=== PATIENT | female | born 1940 | race Caucasian/White ===

== ENCOUNTER 2017-06-08 09:26 | Inpatient (IN) | payer OTHER ==
[~2017-06-08] VITALS: Ht 154.9 cm; Wt 61.2 kg
[~2017-06-08 09:26] MED LIST: AMANTADINE100 M2 PO; AMOXIL 875 MG875 MG PO; AMOXIL500 MG PO; BUDESONIDE0.25 MG/1 INH/SOL; BUDESONIDE0.25 MG/2 INH/SOL; CARBIDOPA-LEVO1 EA12 PO; CEFTIN250 MG PO; COUMADIN 5 MG TA5 MG PO; COUMADIN2.5 M1 PO; DUONEB 3 MG/3 ML3 ML INH/SOL; FLOVENT HFA10.6 GM INH; FLUOXETINE HCL20 M2 PO; HYDROCODON-ACE1 EAC3 PO; IPRAT-ALBUT 0.5-3 ML NEB; IPRATROPIUM/ SOL ALB; LOPRESSOR 12.12.5 MG PO; NEUPRO1 EAC2 TOP; PENICILLIN V P500 M1 PO; PREDNISONE 10MG10 M1 PO; PREDNISONE 20MG20 MG PO; PREDNISONE10 M2 PO; PREDNISONE10 MG PO; PREDNISONE5 MG PO; TESSALON PERLE100 MG PO; VICODIN 5-3001 EACH PO; WARFARIN SODIU2.5 MG PO
--- NOTE | 2017-06-08 09:27 | NUR ---
O2 AT CASE MANAGEMENT ASSOCIATE 95
--- NOTE | 2017-06-08 09:36 | NUR ---
77 YEAR OLD FEMALE HISTORY OF PARKINSONS/COPD STTAES THAT FOR WEEKS SHE HAS BEEN FEELING A LITTLE SOB, GRADUALLY UNABLE TO LAY IN BED TO SLEEP, LAST PM AND THIS AM STATES THAT SHE FEELS REAL SOB AND THAT SHE HAS A PAIN UNDER HER L BREAST. O2 SAT 92 % ON RA. COMPLAINS OF COUGH PRODUCTIVE OF YELLOW SPUTUM
--- NOTE | 2017-06-08 09:45 | NUR ---
PT CHANGED INTO GOWN, PLACED ON RANGE SCIENTIST, IV INITIATED, LABS DRAWN AND SENT. PCXR AT BEDSIDE. RT CALLED FOR NEB TX
--- NOTE | 2017-06-08 09:50 | ED DYSPNEA/ASTHMA COMPLAINT ---
History of Present Illness General Chief Complaint: Dyspnea (COPD, CHF, Other) Stated Complaint: ASTHMA Source: patient, family, old records Exam Limitations: no limitations Vital Signs & Intake/Output Vital Signs & Intake/Output Vital Signs Date Time Temp Pulse Resp B/P B/P Pulse O2 O2 Flow FiO2 Mean Ox Delivery Rate 06/08 1238 98.9 82 20 135/72 94 Room Air 06/08 1125 98.7 91 20 162/82 95 Room Air 06/08 1027 94 06/08 0931 98.1 92 20 158/80 92 Room Air Allergies Coded Allergies: NO KNOWN ALLERGIES (05/18/16) Reconcile Medications Amantadine HCl (Amantadine) 100 MG TABLET 1 TAB PO BID PARKINSONS (Reported) Budesonide 0.25 MG/2 ML AMPUL.NEB 1 Vial INH/EVGENY BID SHORTNESS OF BREATH ( Reported) Carbidopa/Levodopa (Carbidopa-Levo 25-100 MG Odt) 25 MG-100 MG TAB.RAPDIS 1.5 TAB PO TID PARKINSONS (Reported) Fluoxetine HCl 20 MG CAPSULE 1 CAP PO DAILY DEPRESSION (Reported) Hydrocodone/Acetaminophen (Hydrocodon-Acetaminoph 7.5-325) 1 EACH TABLET 1 TAB PO Q4 HRS NEEDED PAIN CONTROL (Reported) Ipratropium/Albuterol Sulfate (Iprat-Albut 0.5-3(2.5) MG/3 Ml) 3 ML AMPUL.NEB 1 INH NEB Q6-PRN PRN SHORTNESS OF BREATH (Reported) Rotigotine (Neupro) 6 MG/24 HOUR PATCH.TD24 1 PAT TOP DAILY PARKINSONS ( Reported) Warfarin Sodium (Coumadin) 2.5 MG TABLET 1 TAB PO SEE ADMIN CRITERIA BLOOD THINNER (Reported) SUNDAY/FRIDAYS TAKES 5 MG SUNDAY/SUNDAY/SUNDAY/SUNDAY/SUNDAY TAKES 2.5 MG Triage Note: 77 YEAR OLD FEMALE HISTORY OF PARKINSONS/COPD STTAES THAT FOR WEEKS SHE HAS BEEN FEELING A LITTLE SOB, GRADUALLY UNABLE TO LAY IN BED TO SLEEP, LAST PM AND THIS AM STATES THAT SHE FEELS REAL SOB AND THAT SHE HAS A PAIN UNDER HER L BREAST. O2 SAT 92 % ON RA. COMPLAINS OF COUGH PRODUCTIVE OF YELLOW SPUTUM Triage Nurses Notes Reviewed? yes Onset: Gradual Duration: week(s): (1), constant Timing: recent history Severity: mild, moderate Activities at Onset: activity Prior Episodes/Possible Cause: occasional episodes Associated Symptoms: cough HPI: 77-year-old female history of COPD, pe, Parkinson's not O2 dependent presents the ER for evaluation complaining of progressively worsening shortness of breath over the past 1 week. Patient states symptoms are worse with exertion and laying flat. She also states that her legs up and swollen. She denies any chest pain fever chills dizziness lightheadedness. The patient does report to a yellow productive cough. She is not currently on prednisone. She's been using her nebulizer treatments with only mild improvement. No modifying factors or associated symptoms otherwise. (OPAL ELIZABETH) Past History Travel History Traveled to [place] past 21 day No Medical History Any Pertinent Medical History? see below for history Neurological: Parkinson's disease EENT: NONE Cardiovascular: NONE Respiratory: asthma, COPD, pulmonary embolism Gastrointestinal: GERD Hepatic: NONE Renal: NONE Musculoskeletal: NONE Psychiatric: anxiety Endocrine: NONE Blood Disorders: NONE Cancer(s): NONE SUBWAREHOUSE SUPERVISOR/Reproductive: NONE History of MRSA: No History of VRE: No History of CDIFF: No Surgical History Surgical History: non-contributory Psychosocial History Who do you live with Spouse Services at Home None What is your primary language Wolof Tobacco Use: Never used ETOH Use: denies use Illicit Drug Use: denies illicit drug use Family History Hx Contributory? No (OPAL ELIZABETH) Review of Systems Review of Systems Constitutional: Reports: see HPI. All Other Systems: Reviewed and Negative Comments Review of systems: See HPI, All other systems negative. Constitutional, no chills no fever, no malaise no weight loss HEENT: No visual changes no sore throat no congestion, no ear pain Cardiovascular: No chest pain , no palpitation , no orthopnea Skin: no rashes, no change in skin Respiratory: No dyspnea no cough no sputum no hemoptysis GI: No nausea no vomiting, no diarrhea, no bloating/constipation : No dysuria No hematuria, no frequency, no discharge Muscle skeletal: No joint pain, no joint swelling, no back pain, no neck pain, Neurologic: No numbness no confusion, no headache Psych: No stress no depression,. Heme/endocrine: No bruising no bleeding Immunology: No lymphadenopathy (OPAL ELIZABETH) Physical Exam Physical Exam General Appearance: well developed/nourished Respiratory: chest non-tender, wheezing Comments: Well-developed well-nourished person in no acute distress HEENT: Normal EENT exam; PERRL, EOMI,. HEAD is atraumatic. moist mucous membranes. Neck: Supple, no lymphadenopathy, normal range of motion Back: Nontender, Full range of motion Cardiovascular: Regular rate and rhythms no murmurs rubs Respiratory: Chest nontender.There were no bony deformities, no asymmetry. No respiratory distress. Patient speaking in full complete sentences. Wheezing bilaterally no rhonchi no rales Abdomen: Soft, nontender nondistended, no appreciable organomegaly. Normal bowel sounds. No rebound/guarding, Extremity: No edema, full range of motion of extremities, Neuro: Alert oriented x3, motor sensory normal, cranial nerves II through XII grossly intact. There were no obvious focal neurologic abnormalities. Skin: No appreciable rash on exposed skin, skin is warm and dry. Psych: Mood and affect is normal, memory and judgment is normal. Core Measures ACS in differential dx? Yes Severe Sepsis Present: No Septic Shock Present: No (STANLEY RODRÍGUEZ,OPAL) Progress Differential Diagnosis: asthma, AMI, CHF, COPD, musculoskeletal pain, pulmonary embolism, pneumonia, pneumothorax, unstable angina Plan of Care: Orders Procedure Date/time Status PROTHROMBIN TIME 06/09 0600 Active CBC WITHOUT DIFFERENTIAL 06/09 0600 Active BASIC ELECTROLYTES PLUS BUN&CR 06/09 0600 Active Heart Healthy Diet 06/08 D Active LACTIC ACID 06/08 1335 Active Code Status 06/08 1258 Active URINALYSIS 06/08 1231 Complete Pathway - chart 06/08 1212 Active STREP PNEUMO URINARY ANTIGEN 06/08 1212 Complete LEGIONELLA URINARY ANTIGEN 06/08 1212 Complete LOWER RESPIRATORY CULTURE 06/08 1212 Active ED Holding Orders 06/08 1141 Active Admit to inpatient 06/08 1141 Active Vital Signs 06/08 1141 Active Code Status 06/08 1141 Complete Patient Data 06/08 1134 Active BLOOD CULTURE 06/08 1107 Active Intake & Output 06/08 1058 Active PROTHROMBIN TIME 06/08 1000 Complete Add-on Test (ER Only) 06/08 0955 Active Telemetry/Shop Coordinator 06/08 0948 Active TROPONIN LEVEL 06/08 0948 Complete MAGNESIUM 06/08 0948 Complete COMPREHENSIVE METABOLIC PANEL 06/08 0948 Complete CBC WITHOUT DIFFERENTIAL 06/08 0948 Complete B-TYPE NATRIURETIC PEP (BNP) 06/08 0948 Complete EKG 06/08 0936 Active TRC EVALUATION (GEN) 06/08 UNK Active OXYGEN SETUP (GEN) 06/08 UNK Active House Staff 06/08 UNK Active Lab Add-on Test 06/08 UNK Active VTE Mechanical Prophylaxis 06/08 UNK Active Vital Signs 06/08 UNK Active Current Medications Sig/Mark Start time Last Medication Dose Stop Time Status Admin Azithromycin 500 MG DAILY 06/09 1000 AC (Zithromax) Sodium Chloride 250 ML (Normal Saline 0.9%) Ceftriaxone Sodium 1,000 MG DAILY 06/09 1000 CAN (Rocephin) Fluoxetine HCl 20 MG DAILY 06/09 1000 AC (Prozac) Amantadine HCl 100 MG BID 06/08 2200 AC (Symmetrel) Budesonide/ 2 PUF BID 06/08 2200 AC Formoterol Fumarate (Symbicort) Carbidopa/Levodopa 1.5 TAB TID 06/08 1600 AC (Sinemet 25/100MG) Methylprednisolone 40 MG Q8 06/08 1400 AC (Solumedrol) Sodium Chloride 1,000 ML Q13H 06/08 1315 AC (Normal Saline 0.9%) 06/09 0214 Non-Formulary 0 SEE ADMIN CRITERIA 06/08 1300 UNVr Medication (NON FORMULARY) Laboratory Tests 06/08/17 1150: Urinalysis LIGHT H, Urine Color YEL, Urine Clarity CLEAR, Urine pH 6.5, Ur Specific Howard 1.010, Urine Protein NEG, Urine Ketones NEG, Urine Nitrite NEG, Urine Bilirubin NEG, Urine Urobilinogen 0.2, Ur Leukocyte Esterase NEG, Ur Microscopic SEDIMENT EXAMINED, Urine RBC 1-3, Urine WBC RARE, Ur Epithelial Cells FEW, Urine Bacteria FEW H, Urine Mucus FEW, Urine Hemoglobin SMALL H, Urine Glucose NEG 06/08/17 1000: Anion Gap 11, Estimated GFR > 60, BUN/Creatinine Ratio 38.3 H, Glucose 136 H, Calcium 9.2, Magnesium 1.8, Total Bilirubin 0.9, AST 16, ALT 17, Alkaline Phosphatase 84, Troponin I < 0.01, Zih-B-Vunzlwypsxh Pept 259 H, Total Protein 6.6, Albumin 3.9, Globulin 2.7, Albumin/Globulin Ratio 1.4, PT 40.9 H, INR 3.95 H, CBC w Diff NO MAN DIFF REQ, RBC 4.64, MCV 89.5, MCH 29.7, RDW 13.9, MPV 10.0 , Gran % 81.5 H, Lymphocytes % 9.0 L, Monocytes % 5.8, Eosinophils % 3.4, Basophils % 0.3, Absolute Granulocytes 6.0, Absolute Lymphocytes 0.7 L, Absolute Monocytes 0.4, Absolute Eosinophils 0.3, Absolute Basophils 0, PUBS MCHC 33.2 Microbiology 06/08 1212 LOWER RESP: Respiratory Culture - ORD 06/08 1212 LOWER RESP: Gram Stain - ORD 06/08 1150 URINE ROUT: Legionella Antigen - COMP 06/08 1150 URINE ROUT: Streptococcus pneumoniae Antigen (M - COMP 06/08 1130 BLOOD: Blood Culture - RECD 06/08 1120 BLOOD: Blood Culture - RECD Labs ordered old reviewed DuoNeb ordered patient IQ sign Medrol 125 IV chest x- ray ordered Patient seen and evaluated by Dr. jean who agrees with plan Discussed with patient and her at length all of her lab results x-ray findings giving cough worsening shortness of breath with exertion and laying flat discussed and I believe premature discharge to BE medically harmful which in agreement with. Case was discussed with will admit (STANLEY RODRÍGUEZ,OPAL) Diagnostic Imaging: Viewed by Me: Radiology Read. Discussed w/RAD: Radiology Read. Radiology Impression: PATIENT: CARMELO MARKS PRESENT AGE: 77 PATIENT ACCOUNT NO: [id number] : 38 LOCATION: [facility], [place] ORDERING PHYSICIAN: OPAL RODRÍGUEZ SERVICE DATE: 06/08/17 EXAM TYPE: RAD - XRY- PORTABLE CHEST XRAY EXAMINATION: XR PORTABLE CHEST CLINICAL INFORMATION: Dyspnea. COMPARISON: Chest x-ray 05/18/2016. TECHNIQUE: Portable frontal view of the chest was obtained. FINDINGS: Lungs are again noted to be hyperinflated. The patient is rotated. Right lung base is not entirely included on this study. Mild bibasilar opacities likely reflect atelectasis and/or artifact from overlying soft tissues. There is a focal airspace opacity within the lateral aspect of the right midlung that may reflect atelectasis versus early consolidation. Lungs are otherwise clear. Cardiac silhouette size is normal with rotation limiting cardiac assessment. Enchondroma versus bone infarct within the proximal left humerus. There are no acute osseous findings. IMPRESSION: Rotation limited study. There is a small opacity within the right lateral midlung that may reflect atelectasis versus developing consolidation. Apparent mild bibasilar opacities may reflect atelectasis versus overlapping soft tissues. Follow-up recommended to document resolution. DICTATED BY: BRITANY BONDS MD DATE/TIME DICTATED:06/08/171022 SURGERY CONSULTANT:CECI DATE/TIME TRANSCRIBED:1022 CONFIDENTIAL, DO NOT COPY WITHOUT APPROPRIATE AUTHORIZATION. < Electronically signed in Other Vendor System> SIGNED BY: BRITANY BONDS MD 06/08/17 1030 Initial ED EKG: NORMAL SINUS RHYTHM AT 90, NO ACUTE st SEGMENT CHANGES NORMAL AXIS Prior EKG: unchanged (10/2015) (OPAL ELIZABETH) Departure Departure Disposition: STILL A PATIENT Condition: Stable Clinical Impression Primary Impression: Pneumonia Secondary Impressions: COPD exacerbation Referrals: ZAHIRA ATKINSON MD (PCP/Family) Departure Forms: Customer Survey General Discharge Information Admission Note Spoke With: ZAHIRA ATKINSON MD Documentation of Exam: Documentation of any treatments & extenuating circumstances including Concerns Regarding Discharge (functional status, medication knowledge or non-compliance, living conditions, etc.) that warrant an admission rather than observation: Trend labs and cultures respiratory treatments when necessary IV steroids IV antibiotics premature discharge medically harmful (OPAL ELIZABETH) PA/PAINTER AND DECORATOR Co-Sign Statement Statement: ED Attending supervision documentation- [X] I saw and evaluated the patient. I have also reviewed all the pertinent lab results and diagnostic results. I agree with the findings and the plan of care as documented in the PA's/PAINTER AND DECORATOR's documentation. [] I have reviewed the ED Record and agree with the PA's/PAINTER AND DECORATOR's documentation. [] Additions or exceptions (if any) to the PAs/PAINTER AND DECORATOR's note and plan are summarized below: [] (BRITANY JEAN DO) Critical Care Note Critical Care Note Critical Care Time: non-applicable (OPAL ELIZABETH)
--- NOTE | 2017-06-08 10:05 | NUR ---
BLOOD DRAWN AND SENT BY THIS MST (1 BLUE, 1 SST, 1 LAV, 1 CHAVEZ)
[2017-06-08 10:19] LABS: ABSOLUTE BASOPHIL COUNT 0 /CUMM (0.0-0.2); ABSOLUTE EOSINOPHIL COUNT 0.3 /CUMM (0.0-0.7); ABSOLUTE LYMPH COUNT 0.7 /CUMM (1.2-3.4); ABSOLUTE MONOCYTE COUNT 0.4 /CUMM (0.10-0.60); BASOPHIL % 0.3 % (0.0-2.0); EOSINOPHIL % 3.4 % (0-5); GRANULOCYTE % 81.5 % (42.2-75.2); HEMATOCRIT 41.5 % (37-47); MEAN CORPUSCULAR HGB 29.7 PG (27.0-31.0); MEAN CORPUSCULAR HGB CONC 33.2 G/DL (33.0-37.0); MEAN CORPUSCULAR VOLUME 89.5 FL (81.0-99.0); PLATELET COUNT 194 /CUMM (130-400); RBC DISTRIBUTION WIDTH 13.9 % (11.5-14.5); RED BLOOD CELL CT 4.64 /CUMM (4.20-5.40); WHITE BLOOD CELL COUNT 7.4 /CUMM (4.8-10.8)
--- NOTE | 2017-06-08 10:30 | RADIOLOGY REPORT ---
EXAMINATION: XR PORTABLE CHEST CLINICAL INFORMATION: Dyspnea. COMPARISON: Chest x-ray 05/18/2016. TECHNIQUE: Portable frontal view of the chest was obtained. FINDINGS: Lungs are again noted to be hyperinflated. The patient is rotated. Right lung base is not entirely included on this study. Mild bibasilar opacities likely reflect atelectasis and/or artifact from overlying soft tissues. There is a focal airspace opacity within the lateral aspect of the right midlung that may reflect atelectasis versus early consolidation. Lungs are otherwise clear. Cardiac silhouette size is normal with rotation limiting cardiac assessment. Enchondroma versus bone infarct within the proximal left humerus. There are no acute osseous findings. IMPRESSION: Rotation limited study. There is a small opacity within the right lateral midlung that may reflect atelectasis versus developing consolidation. Apparent mild bibasilar opacities may reflect atelectasis versus overlapping soft tissues. Follow-up recommended to document resolution.
--- NOTE | 2017-06-08 10:43 | NUR ---
06/08 CASE MGMT- MET WITH PT AND PT TO SET UP HHS FOR PT. AT THIS TIME PT AND PT DECLINING SET UP OF HHS SERVICES. BOTH PT AND PT INFORMD THAT THEY CAN ALSO CONTACT DR ATKINSON TO SET UP HHS IF THEY DECIDE TO CHANGE THEIR MIND REGARDING SET UP OF HHS. DR JEAN AWARE.
--- NOTE | 2017-06-08 11:20 | NUR ---
RESUMED CARE OF PT FROM PREVIOUS RN. PT RESTING QUIETLY IN BED. PT DENIES ANY PAIN AT THSI TIME. LUNGSW AUSCULTATED AND COARSE RHONCHI NOTED THROUGHOUT. PT HAS +1 NON-PITTING EDEMA BILATERALLY. PT IS A/O X3. PT WITH ASSIST X1 TO BATHROOM AND URINE SAMPLE OBTAINED. VSS. NAD NOTED. WILL CONTINUE TO CLOSELY MONITOR.
--- NOTE | 2017-06-08 11:47 | History & Physical ---
VALERIA OLIVARES 06/08/17 1145: General Information and HPI MD Statement: I have seen and personally examined CARMELO MARKS and documented this H&P. The patient is a 77 year old F who presented with a patient stated chief complaint of [ahortness of breath]. Source of Information: patient Exam Limitations: no limitations History of Present Illness: 77 y/o Kiswahili speaking female with past medical history of asthma, COPD, recurrent pulmonary embolism on Coumadin, Parkinson's disease with gait instability presented to the ED with severe shortness of breath, wheezing and dry cough. According to the patient she was in the usual state of health, until about a week ago when she started to experience worsening shortness of breath asscociated with wheezing and purulent productive cough fo rth epast 3 days. Endorses left sided pleuritic chest pain everytime she coughs, and chills. Denies palpitattions, abdominal pain, nausea, vomiting, diarrhea, constipation. Endorses chronic lower extermity edema. Denies orthopnea, but states that she sleeps on her side. Deneis hx of sick contact. Allergies/Medications Allergies: Coded Allergies: NO KNOWN ALLERGIES (05/18/16) Home Med list Amantadine HCl (Amantadine) 100 MG TABLET 1 TAB PO BID PARKINSONS (Reported) Budesonide 0.25 MG/2 ML AMPUL.NEB 1 Vial INH/EVGENY BID SHORTNESS OF BREATH ( Reported) Carbidopa/Levodopa (Carbidopa-Levo 25-100 MG Odt) 25 MG-100 MG TAB.RAPDIS 1.5 TAB PO TID PARKINSONS (Reported) Fluoxetine HCl 20 MG CAPSULE 1 CAP PO DAILY DEPRESSION (Reported) Hydrocodone/Acetaminophen (Hydrocodon-Acetaminoph 7.5-325) 1 EACH TABLET 1 TAB PO Q4 HRS NEEDED PAIN CONTROL (Reported) Ipratropium/Albuterol Sulfate (Iprat-Albut 0.5-3(2.5) MG/3 Ml) 3 ML AMPUL.NEB 1 INH NEB Q6-PRN PRN SHORTNESS OF BREATH (Reported) Rotigotine (Neupro) 6 MG/24 HOUR PATCH.TD24 1 PAT TOP DAILY PARKINSONS ( Reported) Warfarin Sodium (Coumadin) 2.5 MG TABLET 1 TAB PO SEE ADMIN CRITERIA BLOOD THINNER (Reported) SUNDAY/FRIDAYS TAKES 5 MG SUNDAY/SUNDAY/SUNDAY/SUNDAY/SUNDAY TAKES 2.5 MG Past History Travel History Traveled to [place] past 21 day No Medical History Neurological: Parkinson's disease EENT: NONE Cardiovascular: NONE Respiratory: asthma, COPD, pulmonary embolism Gastrointestinal: GERD Hepatic: NONE Renal: NONE Musculoskeletal: NONE Psychiatric: anxiety Endocrine: NONE Blood Disorders: NONE Cancer(s): NONE INSURANCE SALES REPRESENTATIVE/Reproductive: NONE History of MRSA: No History of VRE: No History of CDIFF: No Surgical History Surgical History: non-contributory Past Family/Social History Family History Relations & Conditions if any Relation not specified for: *No pertinent family history Psychosocial History Who Do You Live With? spouse Services at Home: None Smoking Status: Never Smoked ETOH Use: denies use Illicit Drug Use: denies illicit drug use Review of Systems Review of Systems Constitutional: Reports: chills. Denies: diaphoresis, fever, malaise. EENTM: Denies: visual changes. Cardiovascular: Reports: chest pain, peripheral edema. Denies: orthopena, palpitations. Respiratory: Reports: cough, short of breath, sputum production, wheezing. Denies: hemoptysis, orthopnea. GI: Denies: abdominal pain, constipation, diarrhea, nausea, vomiting. Genitourinary: Denies: dysuria, frequency, hematuria, pain. Musculoskeletal: Denies: back pain. Neurological/Psychological: Denies: headache, numbness, tingling, tremors. Exam & Diagnostic Data Last 24 Hrs of Vital Signs/I&O Vital Signs Date Time Temp Pulse Resp B/P B/P Pulse O2 O2 Flow FiO2 Mean Ox Delivery Rate 06/08 1125 98.7 91 20 162/82 95 Room Air 06/08 1027 94 06/08 0931 98.1 92 20 158/80 92 Room Air Intake & Output 06/08 1600 06/08 0800 06/08 0000 Intake Total Output Total Balance Patient 140 lb Weight Physical Exam General Appearance Alert, Oriented X3, Cooperative, No Acute Distress HEENT Atraumatic, PERRLA, EOMI, dry mucous membranes Neck Supple, No JVD, No thryomegaly, +2 Carotid Pulse wo Bruit Cardiovascular Regular Rate, Normal S1, Normal S2, No Murmurs Lungs b/l ronchi - right>>left Abdomen Normal Bowel Sounds, Soft, No Tenderness Neurological Normal Gait, Normal Speech, Strength at 5/5 X4 Ext, Sensation Intact, Cranial Nerves 3-12 NL, Reflexes 2+, cogwheel rigidity Extremities b/l 2+ edema Vascular Normal Pulses, Pulses Symmetrical Last 24 Hrs of Labs/Jude: Laboratory Tests 06/08/17 1000: Anion Gap 11, Estimated GFR > 60, BUN/Creatinine Ratio 38.3 H, Glucose 136 H, Calcium 9.2, Magnesium 1.8, Total Bilirubin 0.9, AST 16, ALT 17, Alkaline Phosphatase 84, Troponin I < 0.01, Clr-P-Nisevurruot Pept 259 H, Total Protein 6.6, Albumin 3.9, Globulin 2.7, Albumin/Globulin Ratio 1.4, CBC w Diff NO MAN DIFF REQ, RBC 4.64, MCV 89.5, MCH 29.7, RDW 13.9, MPV 10.0, Gran % 81.5 H, Lymphocytes % 9.0 L, Monocytes % 5.8, Eosinophils % 3.4, Basophils % 0.3, Absolute Granulocytes 6.0, Absolute Lymphocytes 0.7 L, Absolute Monocytes 0.4, Absolute Eosinophils 0.3, Absolute Basophils 0, PUBS MCHC 33.2 Microbiology 06/08 1130 BLOOD: Blood Culture - RECD 06/08 1120 BLOOD: Blood Culture - RECD Diagnostic Data EKG Results NSR: HR: 92, no ST-T changes, LAD CXR Results FINDINGS: Lungs are again noted to be hyperinflated. The patient is rotated. Right lung base is not entirely included on this study. Mild bibasilar opacities likely reflect atelectasis and/or artifact from overlying soft tissues. There is a focal airspace opacity within the lateral aspect of the right midlung that may reflect atelectasis versus early consolidation. Lungs are otherwise clear. Cardiac silhouette size is normal with rotation limiting cardiac assessment. Enchondroma versus bone infarct within the proximal left humerus. There are no acute osseous findings. IMPRESSION: Rotation limited study. There is a small opacity within the right lateral midlung that may reflect atelectasis versus developing consolidation. Apparent mild bibasilar opacities may reflect atelectasis versus overlapping soft tissues. Follow-up recommended to document resolution. Assessment/Plan Assessment: 77 y/o female with past medical history of asthma, COPD, recurrent pulmonary embolism on Coumadin, Parkinson's disease with gait instability presented to the ED with severe shortness of breath, wheezing and dry cough. Vitals BP: 135/72, RR: 20, pulse: 82, A/F, saturating 94% on RA. Physical exam pertinent for dry mucous membranes and b\l coarse ronchi, normal S1, S2, no murmers, rubs, and abdominal exam was benign. Examination of lower extremity revealed 2+ b/l lower extremity edema. Labs pertinent for no leukocytosis, normal H&H: 13.8/41.5, platelet 194,000. Serum chemistries Na: 139, K: 4.0, HCO3: 25, serum glucose elevated to 136, normal BUN/Cr: 23/0.6. LFTs unremarkable, with AST/ALT of 16/17, trop <0.01, pro -BNP: 259. INR supratherapeutic 3.95, urine analysis revealed light, few bacteria, urinary hemoglobin. CXR: There is a small opacity within the right lateral midlung that may reflect atelectasis versus developing consolidation. Apparent mild bibasilar opacities may reflect atelectasis versus overlapping soft tissues. In the ER she received Zmax and Ceftriaxone and a dose of Solumedrol 125mg X1. Assessment and Plan: Admit to Gen Med for shortness of breath #Shortness of breath - In the setting of productive purulent phlegm,w ith no WBC ocunt, will traet her for acute bronchitis with Azithromycin and IV steroids - F/U LRC, BCx2, and urinary antigen for strep pneumo and legionella - TRC/Nebs - Hydrate with IVFs @ 75mls/hr for 1 bag #Hx of Parkinsons COntinue Sinemet 1.5tab (25-100) daily. On Rotigotine patch 6mg /24 hrs.. will ask the family to bring it #Depression Continue Fluoxetine. Patient denies any suicidal or homicidal ideation # Hx of DVT -On Coumadin and supratherpeutic INR - Hold todays dose - Dose Coumadin in AM pending results of INR - DVT prophylaxis - On coumadin - Diet - Heart healthy - Code Status - Full Code As Ranked By This Provider Problem List: 1. COPD bronchitis Core Measures/Miscellaneous Acute Coronary Syndrome ACS Diagnosis: No Cerebrovascular Accident CVA/TIA Diagnosis: No Congestive Heart Failure CHF Diagnosis: No VTE (View Protocol) VTE Risk Factors: Age > 40 No Mech VTE prophylaxis d/t: No contraindications No VTE Pharm Prophylaxis d/t: No contraindications VTE Diagnosis: No VTE Type: NONE VTE Confirmed by (Test): NONE Sepsis (View Protocol) Severe Sepsis Present: No Septic Shock Septic Shock Present: No Miscellaneous Documentation Attending Case Discussed With: Dr. Atkinson Primary Care Physician: ZAHIRA ATKINSON MD Patient sees these Specialists Dr. Regalado Level of Patient Care: General Medicine Resident Review Statement Resident Statement: admitted by resident [facility]AND [facility] 1128: Attending MD Review Statement Attending Statement Attending MD Statement: examined this patient, discuss w/resident/PA/METALWORKING SPECIALIST, agreed w/resident/PA/METALWORKING SPECIALIST, reviewed EMR data (avail)
--- NOTE | 2017-06-08 12:32 | NUR ---
PT TO ROOM 203 BED 1
--- NOTE | 2017-06-08 12:37 | NUR ---
PT MEDICATED PER ORDERS WITH X1 TAB SINEMET 25/100MG. ADMITTING MD AT BEDSIDE FOR ORDERS. PT URINE SAMPLE SENT TO LAB PER VERBAL ORDER ADMITTING MD. VSS.
[2017-06-08 12:45] LABS: PT 40.9 SEC (9.4-12.5)
[2017-06-08 13:45] VITALS: BP 122/76
--- NOTE | 2017-06-08 18:05 | Cons- Pulmonary ---
See Addendum General Information and HPI Consulting Request Date of Consult: 06/08/17 Requested By: ed History of Present Illness: 77 y/o Wol[place] speaking female with past medical history of asthma, COPD, recurrent pulmonary embolism on Coumadin, Parkinson's disease with gait instability presented to the ED with severe shortness of breath, wheezing and dry cough. According to the patient she was in the usual state of health, until about a week ago when she started to experience worsening shortness of breath asscociated with wheezing and purulent productive cough fo rth epast 3 days. Endorses left sided pleuritic chest pain everytime she coughs, and chills. Denies palpitattions, abdominal pain, nausea, vomiting, diarrhea, constipation. Endorses chronic lower extermity edema. Denies orthopnea, but states that she sleeps on her side. Deneis hx of sick contact. Review of Systems Constitutional: Reports: chills. Denies: diaphoresis, fever, malaise. EENTM: Denies: visual changes. Cardiovascular: Reports: chest pain, peripheral edema. Denies: orthopena, palpitations. Respiratory: Reports: cough, short of breath, sputum production, wheezing. Denies: hemoptysis, orthopnea. GI: Denies: abdominal pain, constipation, diarrhea, nausea, vomiting. Genitourinary: Denies: dysuria, frequency, hematuria, pain. Musculoskeletal: Denies: back pain. Neurological/Psychological: Denies: headache, numbness, tingling, tremors. Allergies/Medications Allergies: Coded Allergies: NO KNOWN ALLERGIES (05/18/16) Home Med List: Amantadine HCl (Amantadine) 100 MG TABLET 1 TAB PO BID PARKINSONS (Reported) Budesonide 0.25 MG/2 ML AMPUL.NEB 1 Vial INH/EVGENY BID SHORTNESS OF BREATH ( Reported) Carbidopa/Levodopa (Carbidopa-Levo 25-100 MG Odt) 25 MG-100 MG TAB.RAPDIS 1.5 TAB PO TID PARKINSONS (Reported) Fluoxetine HCl 20 MG CAPSULE 1 CAP PO DAILY DEPRESSION (Reported) Hydrocodone/Acetaminophen (Hydrocodon-Acetaminoph 7.5-325) 1 EACH TABLET 1 TAB PO Q4 HRS NEEDED PAIN CONTROL (Reported) Ipratropium/Albuterol Sulfate (Iprat-Albut 0.5-3(2.5) MG/3 Ml) 3 ML AMPUL.NEB 1 INH NEB Q6-PRN PRN SHORTNESS OF BREATH (Reported) Rotigotine (Neupro) 6 MG/24 HOUR PATCH.TD24 1 PAT TOP DAILY PARKINSONS ( Reported) Warfarin Sodium (Coumadin) 2.5 MG TABLET 1 TAB PO SEE ADMIN CRITERIA BLOOD THINNER (Reported) SUNDAY/FRIDAYS TAKES 5 MG SUNDAY/SUNDAY/SUNDAY/SUNDAY/SUNDAY TAKES 2.5 MG Review of Systems Review of Systems Constitutional: Reports: see HPI. Past History Travel History Traveled to [place] past 21 day No Medical History Blood Transfusion Hx: No Neurological: Parkinson's disease EENT: NONE Cardiovascular: NONE Respiratory: asthma, COPD, pulmonary embolism Gastrointestinal: GERD Hepatic: NONE Renal: NONE Musculoskeletal: NONE Psychiatric: anxiety Endocrine: NONE Blood Disorders: NONE Cancer(s): NONE HOUSEHOLD MANAGER/Reproductive: NONE Surgical History Surgical History: L KNEE REPLACEMENT BACK SURGERY Family History Relations & Conditions If Any: Relation not specified for: *No pertinent family history Psychosocial History Where Do You Live? Home Who Do You Live With? spouse Services at Home: None Smoking Status: Never Smoked ETOH Use: denies use Illicit Drug Use: denies illicit drug use Exam & Diagnostic Data Last 24 Hrs of Vital Signs/I&O Vital Signs Date Time Temp Pulse Resp B/P B/P Pulse O2 O2 Flow FiO2 Mean Ox Delivery Rate 06/08 1415 92 Room Air 06/08 1345 98.2 88 18 122/76 92 Room Air 06/08 1238 98.9 82 20 135/72 94 Room Air 06/08 1125 98.7 91 20 162/82 95 Room Air 06/08 1027 94 06/08 0931 98.1 92 20 158/80 92 Room Air Intake & Output 06/08 1600 06/08 0800 06/08 0000 Intake Total Output Total Balance Patient 135 lb Weight Weight Reported by Patient Measurement Method Last 48 Hrs of Labs/Jude: Laboratory Tests 06/08/17 1437: Lactic Acid 1.2 06/08/17 1150: Urinalysis LIGHT H, Urine Color YEL, Urine Clarity CLEAR, Urine pH 6.5, Ur Specific [place] 1.010, Urine Protein NEG, Urine Ketones NEG, Urine Nitrite NEG, Urine Bilirubin NEG, Urine Urobilinogen 0.2, Ur Leukocyte Esterase NEG, Ur Microscopic SEDIMENT EXAMINED, Urine RBC 1-3, Urine WBC RARE, Ur Epithelial Cells FEW, Urine Bacteria FEW H, Urine Mucus FEW, Urine Hemoglobin SMALL H, Urine Glucose NEG 06/08/17 1000: Anion Gap 11, Estimated GFR > 60, BUN/Creatinine Ratio 38.3 H, Glucose 136 H, Calcium 9.2, Magnesium 1.8, Total Bilirubin 0.9, AST 16, ALT 17, Alkaline Phosphatase 84, Troponin I < 0.01, Yey-X-Wtibxcudalk Pept 259 H, Total Protein 6.6, Albumin 3.9, Globulin 2.7, Albumin/Globulin Ratio 1.4, PT 40.9 H, INR 3.95 H, CBC w Diff NO MAN DIFF REQ, RBC 4.64, MCV 89.5, MCH 29.7, RDW 13.9, MPV 10.0 , Gran % 81.5 H, Lymphocytes % 9.0 L, Monocytes % 5.8, Eosinophils % 3.4, Basophils % 0.3, Absolute Granulocytes 6.0, Absolute Lymphocytes 0.7 L, Absolute Monocytes 0.4, Absolute Eosinophils 0.3, Absolute Basophils 0, PUBS MCHC 33.2 Microbiology 06/08 115 URINE ROUT: Legionella Antigen - COMP 06/08 1150 URINE ROUT: Streptococcus pneumoniae Antigen (M - COMP Assessment/Plan Impression/Plan: cxr IMPRESSION: Rotation limited study. There is a small opacity within the right lateral midlung that may reflect atelectasis versus developing consolidation. Apparent mild bibasilar opacities may reflect atelectasis versus overlapping soft tissues. Follow-up recommended to document resolution. General Appearance Alert, Oriented X3, Cooperative, No Acute Distress HEENT Atraumatic, PERRLA, EOMI, dry mucous membranes Neck Supple, No JVD, No thryomegaly, +2 Carotid Pulse wo Bruit Cardiovascular Regular Rate, Normal S1, Normal S2, No Murmurs Lungs b/l ronchi - right>>left Abdomen Normal Bowel Sounds, Soft, No Tenderness Neurological Normal Gait, Normal Speech, Strength at 5/5 X4 Ext, Sensation Intact, Cranial Nerves 3-12 NL, Reflexes 2+, cogwheel rigidity Extremities b/l 2+ edema Vascular Normal Pulses, Pulses Symmetrical IMPRESSION This is an unfortunate lady with very end-stage Parkinson's disease, significant asthma, mild COPD, mostly reversible airway disease now has * Acute shortness of breath mild wheezing suggestive of mild acute asthma exacerbation, with bronchitis unlikely pna * Probable bacterial bronchitis, pt has had pseudomonas before and now does not seem to have greenish sputum * Previous chronic steroid use has been off prednisone lately * Significant Parkinson's with on and off aspiration prob * Chronic pulmonary embolism on warfarin * Depression with anxiety * No clinical evidence suggestive of recurrent venous thromboembolism REC CONT steroids REduce dose to 40 bid sputum culture and if it shows gram neg rods in the smear then will start po cipro as pt has had pseumonas before Watch inr COnt lauro meds Nebs atc Pt canno use mdi Can use budesnoide nebs upon dc (home med), No need to start here COnt fluoxetine Rpt cxr Consult Acknowledgment - Thank you for your consult request.
--- NOTE | 2017-06-08 19:38 | NUR ---
LATE ENTRY: PATIENT ARRIVED TO FLOOR AT 1340 FROM ER, DX ASTHMA/PNA/COPD VS 98.2 88 18 122/76 92% ROOM AIR A&O TO SELF AND TIME, PRIMARILY [place] SPEAKING, AND SON IN ROOM; LUNGS ARE RHONCEROUS WITH WHEEZING, NO SPUTUM NOTED; +2 EDEMA TO NILAM ANKLES; ELEVATED; MAX ASSIST TO BSC, WILL CONTINUE WITH BEDPAN ONCE IN BED, PT CONSULT REQUESTED; FALL PRECAUTIONS IN PLACE; IV #20 TO LH WITH NS @ 75 ML/HR RUNNING; ORIENTED TO ROOM AND CALL RODRIGUEZ, SAFETY MAINTAINED, NEEDS WITHIN REACH.
--- NOTE | 2017-06-08 20:34 | NUR ---
ASKED PATIENT'S TO BRING IN ROTIGOTINE FOR PHARMACY. EXPRESSED UNDERSTANDING.
[2017-06-08 23:10] VITALS: BP 122/76
[2017-06-09 06:17] VITALS: BP 136/78
[2017-06-09 08:34] LABS: ABSOLUTE BASOPHIL COUNT 0 /CUMM (0.0-0.2); ABSOLUTE EOSINOPHIL COUNT 0 /CUMM (0.0-0.7); ABSOLUTE GRANULOCYTE CT 6.2 /CUMM (1.4-6.5); ABSOLUTE LYMPH COUNT 0.5 /CUMM (1.2-3.4); ABSOLUTE MONOCYTE COUNT 0.1 /CUMM (0.10-0.60); BASOPHIL % 0 % (0.0-2.0); EOSINOPHIL % 0 % (0-5); HEMATOCRIT 42.7 % (37-47); MEAN CORPUSCULAR HGB 29.4 PG (27.0-31.0); MEAN CORPUSCULAR HGB CONC 32.8 G/DL (33.0-37.0); MEAN CORPUSCULAR VOLUME 89.4 FL (81.0-99.0); MEAN PLATELET VOLUME 10.5 FL (7.4-10.4); PLATELET COUNT 200 /CUMM (130-400); RBC DISTRIBUTION WIDTH 14.6 % (11.5-14.5); RED BLOOD CELL CT 4.78 /CUMM (4.20-5.40); WHITE BLOOD CELL COUNT 6.8 /CUMM (4.8-10.8)
--- NOTE | 2017-06-09 08:41 | PN- Housestaff ---
Subjective Follow-up For: Bronchitis/right lobe pneumonia Supratherapeutic INR Subjective: Interval history: Overnight the were no acute events. This morning Mrs. Kang states that she is having a mild intermittent clear cough but denies any sore throat, chest pain, palpitations, fevers, chills, nausea, abdominal pain or diarrhea. Review of Systems Constitutional: Reports: see HPI. EENTM: Reports: no symptoms. Cardiovascular: Reports: no symptoms. Respiratory: Reports: see HPI. Gastrointestinal: Reports: no symptoms. Musculoskeletal: Reports: no symptoms. Objective Last 24 Hrs of Vital Signs/I&O Vital Signs Date Time Temp Pulse Resp B/P B/P Pulse O2 O2 Flow FiO2 Mean Ox Delivery Rate 06/09 0617 97.6 73 20 136/78 92 06/08 2315 Room Air Room Air 06/08 2310 97.9 82 20 122/76 94 Room Air 06/08 1600 92 Room Air 06/08 1415 92 Room Air 06/08 1345 98.2 88 18 122/76 92 Room Air 06/08 1238 98.9 82 20 135/72 94 Room Air 06/08 1125 98.7 91 20 162/82 95 Room Air 06/08 1027 94 Intake & Output 06/09 1600 /15 0800 06/09 0000 Intake Total 425 1200 Output Total 650 675 Balance -225 525 Intake, IV 425 600 Intake, Oral 600 Output, Urine 650 675 Physical Exam General Appearance: Alert, Cooperative, No Acute Distress Skin: No Significant Lesion Skin Temp/Moisture Exam: Warm/Dry HEENT: Mucous Membr. moist/pink Cardiovascular: Regular Rate, Normal S1, Normal S2 Lungs: Normal Air Movement, expiratory stridor present in the upper lung [place]. No evidence of wheezing at this time Abdomen: Normal Bowel Sounds, Soft, No Tenderness Extremities: Normal Pulses, 1+ pitting edema bilateral lower extremities Vascular: Normal Pulses Assessment/Plan Assessment: 77 y/o female with past medical history of asthma, COPD, recurrent pulmonary embolism on Coumadin, Parkinson's disease with gait instability presented to the ED with severe shortness of breath, wheezing and dry cough. Problem list: 1. Pneumonia versus Bronchitis 2. Supratherapeutic INR Plan: 1. Pneumonia versus Bronchitis * In the setting of improvement in wheezing, will decrease Solu-Medrol 40 mg from Q8 to Q24 * Sputum cultures with no growth as of this morning. We'll continue to monitor for evidence of GNR * Follow-up chest x-ray PA/lateral this morning to better assess lung parenchyma * Continue with nebulizer treatments, incentive spirometry * We'll plan to give a 3-5 day course of azithromycin 2. Supratherapeutic INR * INR 4.71 up from 3.95 on admission * Likely secondary to azithromycin use and disruption of gut janie * We'll continue to hold Coumadin, trend INR daily for target between 2 and 3 * If concern for bleeding will give one-time vitamin K 3. Parkinson's disease * Continue Sinemet, amantadine Problem List: 1. Pneumonia Pain Ratin Pain Location: NA Pain Goal: Pain 4 or less Pain Plan: Pain pathway Tomorrow's Labs & Rationales: INR: patient on Coumadin with supratherapeutic INR DVT/Prophylaxis: pharmacological
[2017-06-09 08:47] LABS: PT 48.7 SEC (9.4-12.5)
[2017-06-09 10:26] LABS: GRANULOCYTE % 90.7 % (42.2-75.2)
--- NOTE | 2017-06-09 11:24 | Admission Certification ---
Admission Certification Certification Statement - As attending physician, I certify that at the time of - admission, based on clinical presentation, severity of - symptoms, need for further diagnostic testing and - therapeutic interventions, and risk of adverse outcomes - without in-hospital treatment, in my clinical assessment, - this patient requires an acute hospital stay for a minimum - of two nights or longer. I have also considered psychsocial - factors such as support system, advanced age, financial - issues, cognitive issues, and failed out-patient treatments, - past re-admission history, safety of patient, and lack of - compliance as applicable. Specific rationale supporting this admission is: Bronchitis and COPD
--- NOTE | 2017-06-09 11:28 | PN- Att Addend ---
Attending Addendum Attending Brief Note Patient complains of persistent cough and wheezing. She is currently off oxygen. General Appearance: Alert, No Acute Distress Skin: Grossly normal HEENT: PEERLA Neck: Supple, No JVD Cardiovascular: Regular Rate, Normal S1, Normal S2, No Murmurs Lungs: Generalized coarse wheeze Abdomen: Normal Bowel Sounds, Soft, No Tenderness Assessment 77-year-old female with history of asthma, COPD, recurrent PE on Coumadin and Parkinson's presenting with shortness of breath and productive cough for 3 days duration. She does not have a fever or leukocytosis, however chest x-ray suggests right mid lateral lung opacity. She is currently being treated for bronchitis with steroids and azithromycin. We will send a sputum culture and also repeat chest x-ray. Plan Chest x-ray PA and lateral view Send sputum culture Continue azithromycin for now Continue IV Solu-Medrol TRC and nebs Out of bed to chair and ambulate patient Continue other home medication Hold Coumadin for subtherapeutic INR Check INR in a.m. Current Medications Sig/Mark Start time Last Medication Dose Route Stop Time Status Admin Albuterol Sulfate 3 ML BID 06/09 1000 AC 06/09 INH 1117 Amantadine HCl 100 MG BID 06/08 2200 AC 06/09 PO 1103 Azithromycin 500 MG DAILY 06/09 1000 AC 06/09 Sodium Chloride 250 ML IV 1104 Azithromycin 500 MG ONCE ONE 06/08 1115 DC 06/08 Sodium Chloride 250 ML IV 06/08 1214 1156 Budesonide/ 2 PUF BID 06/08 2200 AC 06/09 Formoterol Fumarate INH 1120 Carbidopa/Levodopa 1.5 TAB TID 06/08 1600 AC 06/09 PO 1107 Carbidopa/Levodopa 1 TAB ONCE ONE 06/08 1145 DC 06/08 PO 06/08 1146 1225 Ceftriaxone Sodium 1,000 MG DAILY 06/09 1000 CAN IV Fluoxetine HCl 20 MG DAILY 06/09 1000 AC 06/09 PO 1103 Ipratropium [place] 2.5 ML BID 06/09 1000 AC 06/09 INH 1117 Methylprednisolone 40 MG DAILY 06/10 1000 AC IV Methylprednisolone 40 MG Q24 06/09 1000 DC IV Methylprednisolone 40 MG Q8 06/08 1400 DC 06/09 IV 0632 Non-Formulary 0 SEE ADMIN CRITERIA 06/08 1300 UNVr Medication ANY Sodium Chloride 1,000 ML Q13H 06/08 1315 DC 06/08 IV 06/09 0214 1434 Laboratory Tests 06/09 06/08 0650 1437 Chemistry Sodium (137 - 145 mmol/L) 141 Potassium (3.5 - 5.1 mmol/L) 4.5 Chloride (98 - 107 mmol/L) 105 Carbon Dioxide (22 - 30 mmol/L) 27 Anion Gap (5 - 16) 9 BUN (7 - 17 mg/dL) 22 H Creatinine (0.5 - 1.0 mg/dL) 0.6 Estimated GFR (>60 ml/min) > 60 BUN/Creatinine Ratio (7 - 25 %) 36.7 H Lactic Acid (0.7 - 2.1 mmol/L) 1.2 Phosphorus (2.5 - 4.5 mg/dL) 4.1 Magnesium (1.6 - 2.3 mg/dL) 1.9 Coagulation PT (9.4 - 12.5 SEC) 48.7 *H INR (0.90 - 1.19) 4.71 *H Hematology CBC w Diff NO MAN DIFF REQ WBC (4.8 - 10.8 /CUMM) 6.8 RBC (4.20 - 5.40 /CUMM) 4.78 Hgb (12.0 - 16.0 G/DL) 14.0 Hct (37 - 47 %) 42.7 MCV (81.0 - 99.0 FL) 89.4 MCH (27.0 - 31.0 PG) 29.4 RDW (11.5 - 14.5 %) 14.6 H Plt Count (130 - 400 /CUMM) 200 MPV (7.4 - 10.4 FL) 10.5 H Gran % (42.2 - 75.2 %) 90.7 H Lymphocytes % (20.5 - 51.1 %) 7.4 L Monocytes % (1.7 - 9.3 %) 1.9 Eosinophils % (0 - 5 %) 0 Basophils % (0.0 - 2.0 %) 0 L Absolute Granulocytes (1.4 - 6.5 /CUMM) 6.2 Absolute Lymphocytes (1.2 - 3.4 /CUMM) 0.5 L Absolute Monocytes (0.10 - 0.60 /CUMM) 0.1 L Absolute Eosinophils (0.0 - 0.7 /CUMM) 0 Absolute Basophils (0.0 - 0.2 /CUMM) 0 PUBS MCHC (33.0 - 37.0 G/DL) 32.8 L 06/08 1150 Urines Urinalysis LIGHT H Urine Color (YEL,AMB,STR) YEL Urine Clarity (CLEAR) CLEAR Urine pH (5.0 - 8.0) 6.5 Ur Specific [place] (1.001 - 1.035) 1.010 Urine Protein (NEG,<30 MG/DL) NEG Urine Ketones (NEG) NEG Urine Nitrite (NEG) NEG Urine Bilirubin (NEG) NEG Urine Urobilinogen (0.1 - 1.0 EU/dl) 0.2 Ur Leukocyte Esterase (NEG) NEG Ur Microscopic SEDIMENT EXAMINED Urine RBC (0 - 5 /HPF) 1-3 Urine WBC (0 - 2 /HPF) RARE Ur Epithelial Cells (NONE,FEW) FEW Urine Bacteria (NEG/NONE) FEW H Urine Mucus (FEW,NONE) FEW Urine Hemoglobin (NEG) SMALL H Urine Glucose (N MG/DL) NEG Vital Signs Date Time Temp Pulse Resp B/P B/P Pulse O2 O2 Flow FiO2 Mean Ox Delivery Rate 06/09 1121 95 Room Air 06/09 0617 97.6 73 20 136/78 92 06/08 2315 Room Air Room Air 06/08 2310 97.9 82 20 122/76 94 Room Air 06/08 1600 92 Room Air 06/08 1415 92 Room Air 06/08 1345 98.2 88 18 122/76 92 Room Air 06/08 1238 98.9 82 20 135/72 94 Room Air
--- NOTE | 2017-06-09 11:33 | NUR ---
PT RAUL FOR CHEST X-RAY. PT ALSO DISCUSSED WITH NURSING HIGH INR LEVELS (4.47) AND AGREED TO CX PT FOR TODAY UNTIL PT RETURNS TO FLOOR AND INR LEVELS REDUCE. PT WILL ATTEMPT TO EVAL TOMORROW AM
--- NOTE | 2017-06-09 11:58 | RADIOLOGY REPORT ---
EXAMINATION: XR CHEST 2 VIEWS CLINICAL INFORMATION: Shortness of breath and purulent phlegm; question pneumonia. COMPARISON: Prior chest radiographs, most recently 06/08/2017. TECHNIQUE: Frontal and lateral views of the chest were obtained. The frontal view is somewhat rotated. FINDINGS: The heart, great vessels, pulmonary vasculature and mediastinum are stable and unremarkable, accounting for rotation. The lungs show no focal infiltrate, effusion or pneumothorax. There is mild hyperinflation. There is no acute osseous abnormality. There have been prior lower thoracic vertebral plasties. The previously questioned proximal left humeral enchondroma versus bone infarct is partially included. IMPRESSION: No active cardiopulmonary disease.
--- NOTE | 2017-06-09 13:17 | PN- Pulmonary ---
Subjective HPI/Critical Care Issues: Doing well afebrile No sig wheezing Objective Current Medications: Current Medications Sig/Mark Start time Last Medication Dose Route Stop Time Status Admin Albuterol Sulfate 3 ML BID 06/09 1000 AC 06/09 INH 1117 Amantadine HCl 100 MG BID 06/08 2200 AC 06/09 PO 1103 Azithromycin 500 MG DAILY 06/09 1000 AC 06/09 Sodium Chloride 250 ML IV 1104 Budesonide/ 2 PUF BID 06/08 2200 AC 06/09 Formoterol Fumarate INH 1120 Carbidopa/Levodopa 1.5 TAB TID 06/08 1600 AC 06/09 PO 1107 Ceftriaxone Sodium 1,000 MG DAILY 06/09 1000 CAN IV Fluoxetine HCl 20 MG DAILY 06/09 1000 AC 06/09 PO 1103 Ipratropium [place] 2.5 ML BID 06/09 1000 AC 06/09 INH 1117 Methylprednisolone 40 MG DAILY 06/10 1000 AC IV Methylprednisolone 40 MG Q24 06/09 1000 DC IV Methylprednisolone 40 MG Q8 06/08 1400 DC 06/09 IV 0632 Sodium Chloride 1,000 ML Q13H 06/08 1315 DC 06/08 IV 06/09 0214 1434 Vital Signs & I&O Last 24 Hrs of Vitals and I&O: Vital Signs Date Time Temp Pulse Resp B/P B/P Pulse O2 O2 Flow FiO2 Mean Ox Delivery Rate 06/09 1121 95 Room Air 06/09 0800 Room Air 06/09 0617 97.6 73 20 136/78 92 06/08 2315 Room Air Room Air 06/08 2310 97.9 82 20 122/76 94 Room Air 06/08 1600 92 Room Air 06/08 1415 92 Room Air 06/08 1345 98.2 88 18 122/76 92 Room Air Intake & Output 06/09 1600 15 0800 06/09 0000 Intake Total 425 1200 Output Total 650 675 Balance -225 525 Intake, IV 425 600 Intake, Oral 600 Output, Urine 650 675 Impression/Plan Impression/Plan Impression/Plan: cxr cxr clear General Appearance Alert, Oriented X3, Cooperative, No Acute Distress HEENT Atraumatic, PERRLA, EOMI, dry mucous membranes Neck Supple, No JVD, No thryomegaly, +2 Carotid Pulse wo Bruit Cardiovascular Regular Rate, Normal S1, Normal S2, No Murmurs Lungs b/l ronchi - right>>left Abdomen Normal Bowel Sounds, Soft, No Tenderness Neurological Normal Gait, Normal Speech, Strength at 5/5 X4 Ext, Sensation Intact, Cranial Nerves 3-12 NL, Reflexes 2+, cogwheel rigidity Extremities b/l 2+ edema Vascular Normal Pulses, Pulses Symmetrical IMPRESSION This is an unfortunate lady with very end-stage Parkinson's disease, significant asthma, mild COPD, mostly reversible airway disease now has * Acute shortness of breath mild wheezing suggestive of mild acute asthma exacerbation, with bronchitis unlikely pna * Probable bacterial bronchitis, pt has had pseudomonas before and now does not seem to have greenish sputum * Previous chronic steroid use has been off prednisone lately * Significant Parkinson's with on and off aspiration prob * Chronic pulmonary embolism on warfarin * Depression with anxiety * No clinical evidence suggestive of recurrent venous thromboembolism REC CONT steroids Prednisone 40 daily sputum culture and if it shows gram neg rods in the smear then will start po cipro as pt has had pseumonas before Watch inr COnt parkinson Nebs atc Pt canno use mdi Can use budesnoide nebs upon dc (home med), No need to start here COnt fluoxetine Ok to dc soon Pt has chronic venous insuff prob with chronic edema needs compression stockings
[2017-06-09] MEDS ORDERED: ZITHROMAX250 M2 PO (13:23)
[2017-06-09] MEDS ORDERED: PREDNISONE10 M2 PO (13:23)
[2017-06-09 14:36] VITALS: BP 120/70
[2017-06-09 22:07] VITALS: BP 122/70
[2017-06-10 06:42] VITALS: BP 130/80
[2017-06-10 08:15] LABS: ABSOLUTE BASOPHIL COUNT 0 /CUMM (0.0-0.2); ABSOLUTE EOSINOPHIL COUNT 0 /CUMM (0.0-0.7); ABSOLUTE GRANULOCYTE CT 7.2 /CUMM (1.4-6.5); ABSOLUTE MONOCYTE COUNT 0.5 /CUMM (0.10-0.60); BASOPHIL % 0.4 % (0.0-2.0); EOSINOPHIL % 0.1 % (0-5); GRANULOCYTE % 82.9 % (42.2-75.2); MEAN CORPUSCULAR HGB 29.6 PG (27.0-31.0); MEAN CORPUSCULAR HGB CONC 32.8 G/DL (33.0-37.0); MEAN CORPUSCULAR VOLUME 90.3 FL (81.0-99.0); MEAN PLATELET VOLUME 10.6 FL (7.4-10.4); PLATELET COUNT 204 /CUMM (130-400); RBC DISTRIBUTION WIDTH 14.5 % (11.5-14.5); RED BLOOD CELL CT 4.54 /CUMM (4.20-5.40); WHITE BLOOD CELL COUNT 8.7 /CUMM (4.8-10.8)
--- NOTE | 2017-06-10 08:36 | PN- Housestaff ---
Subjective Follow-up For: Bronchitis/right lobe pneumonia Supratherapeutic INR Complaints: no complaints Subjective: Patient seen [facility] exam[facility]. She is sitting in bed. Sherin quach feels week, but otehr than that offers no complaints. Review of Systems Constitutional: Denies: chills, fever. EENTM: Denies: visual changes. Cardiovascular: Denies: chest pain, palpitations, peripheral edema. Respiratory: Reports: cough. Denies: hemoptysis, short of breath, wheezing. Gastrointestinal: Denies: abdominal pain, constipation, diarrhea, nausea, vomiting. Genitourinary: Reports: no symptoms. Neurological/Psychological: Denies: headache, numbness, tingling, tremors. Objective Last 24 Hrs of Vital Signs/I&O Vital Signs Date Time Temp Pulse Resp B/P B/P Pulse O2 O2 Flow FiO2 Mean Ox Delivery Rate 06/10 0642 97.6 75 20 130/80 94 06/09 2207 98.1 87 20 122/70 93 Room Air 06/09 1815 93 Room Air 06/09 1600 Room Air 06/09 1436 98.2 89 20 120/70 92 Room Air 06/09 1121 95 Room Air Intake & Output 06/10 1600 06/10 0800 06/10 0000 Intake Total Output Total 200 350 Balance -200 -350 Number 1 Bowel Movements Output, Urine 200 350 Physical Exam General Appearance: Alert, Oriented X3, Cooperative, No Acute Distress HEENT: Atraumatic, PERRLA, EOMI, Mucous Membr. moist/pink Neck: Supple, No JVD, No LAD Cardiovascular: Regular Rate, Normal S1, Normal S2, No Murmurs Lungs: Clear to Auscultation, Normal Air Movement Abdomen: Normal Bowel Sounds, Soft, No Tenderness Neurological: Normal Speech Extremities: b/l edema Current Medications: Current Medications Sig/Mark Start time Last Medication Dose Route Stop Time Status Admin Albuterol Sulfate 3 ML BID 06/09 1000 AC 06/09 INH 1815 Amantadine HCl 100 MG BID 06/080 AC 06/09 PO 2120 Azithromycin 250 MG DAILY 06/10 1000 AC PO Azithromycin 500 MG DAILY 06/09 1000 DC 06/09 Sodium Chloride 250 ML IV 1104 Budesonide/ 2 PUF BID 06/08 2200 AC 06/09 Formoterol Fumarate INH 2120 Carbidopa/Levodopa 1.5 TAB TID 06/08 1600 AC 06/09 PO 2119 Fluoxetine HCl 20 MG DAILY 06/09 1000 AC 06/09 PO 1103 Ipratropium [place] 2.5 ML BID 06/09 1000 AC 06/09 INH 1815 Methylprednisolone 40 MG DAILY 06/10 1000 CAN IV Methylprednisolone 40 MG Q24 06/09 1000 DC IV Methylprednisolone 40 MG Q8 06/08 1400 DC 06/09 IV 0632 Prednisone 40 MG DAILY 06/10 1000 AC PO 06/11 1001 Last 24 Hrs of Lab/Jude Results Last 24 Hrs of Labs/Mics: Laboratory Tests 06/10/17 0647: Sodium Pending, Potassium Pending, Chloride Pending, Carbon Dioxide Pending, Anion Gap Pending, BUN Pending, Creatinine Pending, BUN/Creatinine Ratio Pending , PT Pending, INR Pending, CBC w Diff Pending, WBC Pending, RBC Pending, Hgb Pending, Hct Pending, MCV Pending, MCH Pending, RDW Pending, Plt Count Pending, MPV Pending, PUBS MCHC Pending Microbiology 06/09 1815 LOWER RESP: Respiratory Culture - RES 06/09 1815 LOWER RESP: Gram Stain - RES Assessment/Plan Assessment: 77 y/o female with past medical history of asthma, COPD, recurrent pulmonary embolism on Coumadin, Parkinson's disease with gait instability presented to the ED with severe shortness of breath, wheezing and dry cough. Problem list: 1. Pneumonia versus Bronchitis 2. Supratherapeutic INR Plan: 1. Pneumonia versus Bronchitis * In the setting of improvement in wheezing, willtrasnition t PO Prednisone taper * Sputum cultures with no growth as of this morning. We'll continue to monitor for evidence of GNR * Follow-up chest x-ray PA/lateral shwoed no consoloidation * Continue with nebulizer treatments, incentive spirometry * Trasnition to Cipro BID PO for 5 days 2. Supratherapeutic INR * INR 4.68 up from 3.95 on admission * Likely secondary to azithromycin use and disruption of gut janie * We'll continue to hold Coumadin, trend INR daily for target between 2 and 3 * If concern for bleeding will give one-time vitamin K 3. Parkinson's disease * Continue Sinemet, amantadine Problem List: 1. Supratherapeutic INR 2. Pneumonia Pain Ratin Pain Location: n/a Pain Goal: Remain pain free Pain Plan: None Tomorrow's Labs & Rationales: inr- for coumdain CBC and BEP - cr
[2017-06-10 08:57] LABS: PT 48.4 SEC (9.4-12.5)
--- NOTE | 2017-06-10 11:34 | PN- Att Addend ---
Attending Addendum Attending Brief Note Patient complains of persistent cough and wheezing. She is currently off oxygen. General Appearance: Alert, No Acute Distress Skin: Grossly normal HEENT: PEERLA Neck: Supple, No JVD Cardiovascular: Regular Rate, Normal S1, Normal S2, No Murmurs Lungs: Generalized coarse wheeze Abdomen: Normal Bowel Sounds, Soft, No Tenderness Assessment 77-year-old female with history of asthma, COPD, recurrent PE on Coumadin and Parkinson's presenting with shortness of breath and productive cough for 3 days duration. She does not have a fever or leukocytosis and chest x-ray is normal. She is currently being treated for bronchitis with steroids and azithromycin. Mixed janie on sputum culture however she does have some gram-negative rods. Would start patient on Cipro and discontinue azithromycin. Plan Start Cipro per pulmonary Discontinue azithromycin Prednisone taper Get physical therapy evaluation since patient lives with her who is the primary caregiver TRC and nebs Out of bed to chair and ambulate patient Continue other home medication Hold Coumadin for subtherapeutic INR Check INR in a.m. Current Medications Sig/Mark Start time Last Medication Dose Route Stop Time Status Admin Albuterol Sulfate 3 ML BID 06/09 1000 AC 06/10 INH 1036 Amantadine HCl 100 MG BID 06/08 2200 AC 06/10 PO 0958 Azithromycin 250 MG DAILY 06/10 1000 AC 06/10 PO 0958 Azithromycin 500 MG DAILY 06/09 1000 DC 06/09 Sodium Chloride 250 ML IV 1104 Budesonide/ 2 PUF BID 06/08 2200 AC 06/10 Formoterol Fumarate INH 0958 Carbidopa/Levodopa 1.5 TAB TID 06/08 1600 AC 06/10 PO 0959 Fluoxetine HCl 20 MG DAILY 06/09 1000 AC 06/10 PO 0959 Ipratropium [place] 2.5 ML BID 06/09 1000 AC 06/10 INH 1036 Methylprednisolone 40 MG DAILY 06/10 1000 CAN IV Prednisone 40 MG DAILY 06/10 1000 AC 06/10 PO 06/11 1001 0959 Laboratory Tests 06/10 0647 Chemistry Sodium (137 - 145 mmol/L) 141 Potassium (3.5 - 5.1 mmol/L) 4.0 Chloride (98 - 107 mmol/L) 105 Carbon Dioxide (22 - 30 mmol/L) 28 Anion Gap (5 - 16) 8 BUN (7 - 17 mg/dL) 27 H Creatinine (0.5 - 1.0 mg/dL) 0.6 Estimated GFR (>60 ml/min) > 60 BUN/Creatinine Ratio (7 - 25 %) 45.0 H Coagulation PT (9.4 - 12.5 SEC) 48.4 *H INR (0.90 - 1.19) 4.68 *H Hematology CBC w Diff NO MAN DIFF REQ WBC (4.8 - 10.8 /CUMM) 8.7 RBC (4.20 - 5.40 /CUMM) 4.54 Hgb (12.0 - 16.0 G/DL) 13.4 Hct (37 - 47 %) 41.0 MCV (81.0 - 99.0 FL) 90.3 MCH (27.0 - 31.0 PG) 29.6 RDW (11.5 - 14.5 %) 14.5 Plt Count (130 - 400 /CUMM) 204 MPV (7.4 - 10.4 FL) 10.6 H Gran % (42.2 - 75.2 %) 82.9 H Lymphocytes % (20.5 - 51.1 %) 11.0 L Monocytes % (1.7 - 9.3 %) 5.6 Eosinophils % (0 - 5 %) 0.1 Basophils % (0.0 - 2.0 %) 0.4 Absolute Granulocytes (1.4 - 6.5 /CUMM) 7.2 H Absolute Lymphocytes (1.2 - 3.4 /CUMM) 1.0 L Absolute Monocytes (0.10 - 0.60 /CUMM) 0.5 Absolute Eosinophils (0.0 - 0.7 /CUMM) 0 Absolute Basophils (0.0 - 0.2 /CUMM) 0 PUBS MCHC (33.0 - 37.0 G/DL) 32.8 L Vital Signs Date Time Temp Pulse Resp B/P B/P Pulse O2 O2 Flow FiO2 Mean Ox Delivery Rate 06/10 1039 93 Room Air Room Air 06/10 0642 97.6 75 20 130/80 94 06/09 2207 98.1 87 20 122/70 93 Room Air 06/09 1815 93 Room Air 06/09 1600 Room Air 06/09 1436 98.2 89 20 120/70 92 Room Air
--- NOTE | 2017-06-10 13:04 | PN- Pulmonary ---
Subjective HPI/Critical Care Issues: Patient complains of persistent cough and wheezing. She is currently off oxygen. Objective Current Medications: Current Medications Sig/Mark Start time Last Medication Dose Route Stop Time Status Admin Albuterol Sulfate 3 ML BID 06/09 1000 AC 06/10 INH 1036 Amantadine HCl 100 MG BID 06/08 2200 AC 06/10 PO 0958 Azithromycin 250 MG DAILY 06/10 1000 DC 06/10 PO 0958 Azithromycin 500 MG DAILY 06/09 1000 DC 06/09 Sodium Chloride 250 ML IV 1104 Budesonide/ 2 PUF BID 06/08 2200 AC 06/10 Formoterol Fumarate INH 0958 Carbidopa/Levodopa 1.5 TAB TID 06/08 1600 AC 06/10 PO 0959 Ciprofloxacin 500 MG Q12H 06/10 1137 AC PO 06/14 1136 Fluoxetine HCl 20 MG DAILY 06/09 1000 AC 06/10 PO 0959 Ipratropium [place] 2.5 ML BID 06/09 1000 AC 06/10 INH 1036 Methylprednisolone 40 MG DAILY 06/10 1000 CAN IV Prednisone 10 MG DAILY 06/16 1000 AC PO 06/18 0959 Prednisone 20 MG DAILY 06/14 1000 AC PO 06/16 0959 Prednisone 30 MG DAILY 06/12 1000 AC PO 06/14 0959 Prednisone 40 MG DAILY 06/11 1000 CAN PO 06/18 0959 Prednisone 40 MG DAILY 06/11 1000 AC PO 06/12 0959 Prednisone 40 MG DAILY 06/10 1000 DC 06/10 PO 06/11 1001 0959 Vital Signs & I&O Last 24 Hrs of Vitals and I&O: Vital Signs Date Time Temp Pulse Resp B/P B/P Pulse O2 O2 Flow FiO2 Mean Ox Delivery Rate 06/10 1039 93 Room Air Room Air 06/10 0800 96 Room Air 06/10 0642 97.6 75 20 130/80 94 06/09 2207 98.1 87 20 122/70 93 Room Air 06/09 1815 93 Room Air 06/09 1600 Room Air 06/09 1436 98.2 89 20 120/70 92 Room Air Intake & Output 06/10 1600 06/10 0800 06/10 0000 Intake Total Output Total 200 350 Balance -200 -350 Number 1 Bowel Movements Output, Urine 200 350 Impression/Plan Impression/Plan Impression/Plan: cxr cxr clear General Appearance Alert, Oriented X3, Cooperative, No Acute Distress HEENT Atraumatic, PERRLA, EOMI, dry mucous membranes Neck Supple, No JVD, No thryomegaly, +2 Carotid Pulse wo Bruit Cardiovascular Regular Rate, Normal S1, Normal S2, No Murmurs Lungs b/l ronchi - right>>left Abdomen Normal Bowel Sounds, Soft, No Tenderness Neurological Normal Gait, Normal Speech, Strength at 5/5 X4 Ext, Sensation Intact, Cranial Nerves 3-12 NL, Reflexes 2+, cogwheel rigidity Extremities b/l 2+ edema Vascular Normal Pulses, Pulses Symmetrical IMPRESSION This is an unfortunate lady with very end-stage Parkinson's disease, significant asthma, mild COPD, mostly reversible airway disease now has * Acute shortness of breath mild wheezing suggestive of mild acute asthma exacerbation, with bronchitis unlikely pna * Probable bacterial bronchitis, pt has had pseudomonas before * Previous chronic steroid use has been off prednisone lately * Significant Parkinson's with on and off aspiration prob * Chronic pulmonary embolism on warfarin * Depression with anxiety * No clinical evidence suggestive of recurrent venous thromboembolism REC CONT steroids Prednisone 40 daily CIpro po bid for seven days as she still has sputum Watch inr COnt parkinson meds Nebs atc Pt canno use mdi Start budesonide neb bid COnt fluoxetinePT to see Follow INR Pt has chronic venous insuff prob with chronic edema needs compression stockings Will consider transition to low dose eliquis 2.5 bid after dc (please ask out pt pharmacy if this is covered) Once the antidote is available hopefully soon (high fall risk due to parkinson)
--- NOTE | 2017-06-10 13:16 | NUR ---
CASE AMNAGEMENT: PLEASE CALL PT'S [id number], RAYA MARKS, WHEN ORGANIZING DISCHARGE. PT AND HAVE LIMITED [place], AND ARE HESITANT TO AGREE TO SHORT TERM REHAB. RAYA WILL HELP WITH THIS CONVERSATION. HER NUMER IS .
[2017-06-10 15:26] VITALS: BP 132/74
--- NOTE | 2017-06-10 21:44 | NUR ---
NOTE FOR PHYSICAL THERAPY: PT IS MUCH MORE CAPABLE OF MOVEMENT APPROX 45MINUTES AFTER TAKING SINEMET. TODAY WHEN SHE WAS ASSESSED, IT WAS BEFORE SHE HAD RECIEVED THE MED. FAMILY WOULD LIKE HER RE-ASSESSED.
[2017-06-10 22:25] VITALS: BP 118/70
[2017-06-11 06:47] VITALS: BP 132/76
--- NOTE | 2017-06-11 07:26 | PN- Housestaff ---
Subjective Follow-up For: Bronchitis/right lobe pneumonia Supratherapeutic INR Complaints: no complaints Subjective: Patient seen and examined at bedside. She states she wants to get out of bed. Of note, she is de-conditioned. Offers no other complaints. Review of Systems Constitutional: Reports: weakness. Denies: chills, fever, malaise. Cardiovascular: Denies: chest pain, orthopena, palpitations. Respiratory: Denies: cough, orthopnea, short of breath, wheezing. Gastrointestinal: Denies: abdominal pain, constipation, diarrhea, nausea, vomiting. Genitourinary: Denies: discharge, frequency, hematuria. Musculoskeletal: Reports: no symptoms. Neurological/Psychological: Reports: weakness. Denies: headache, numbness, tingling, tremors, unable to move lower ext, unable to move upper ext. Objective Last 24 Hrs of Vital Signs/I&O Vital Signs Date Time Temp Pulse Resp B/P B/P Pulse O2 O2 Flow FiO2 Mean Ox Delivery Rate 06/11 0647 97.5 72 18 132/76 93 Room Air 06/11 0000 Room Air 06/10 2225 97.9 80 19 118/70 91 Room Air 06/10 2000 93 Room Air 06/10 1526 97.9 89 20 132/74 93 Room Air 06/10 1039 93 Room Air Room Air 06/10 0800 96 Room Air Intake & Output 06/11 0800 06/11 0000 06/10 1600 Intake Total 200 500 Output Total 200 1200 200 Balance -200 -1000 300 Intake, Oral 200 500 Number 2 2 Bowel Movements Output, Urine 200 1200 200 Physical Exam General Appearance: Alert, Oriented X3, Cooperative, No Acute Distress HEENT: Atraumatic, PERRLA, EOMI, Mucous Membr. moist/pink Neck: Supple, No JVD Cardiovascular: Normal S1, Normal S2, No Murmurs Lungs: Clear to Auscultation, Normal Air Movement Abdomen: Normal Bowel Sounds, Soft, No Tenderness Neurological: has cogwheel rigidity Extremities: No Edema, Normal Pulses Vascular: Normal Pulses, Pulses Symmetrical Current Medications: Current Medications Sig/Mark Start time Last Medication Dose Route Stop Time Status Admin Albuterol Sulfate 3 ML BID 06/09 1000 AC 06/10 INH 1999 Amantadine HCl 100 MG BID 06/08 2200 AC 06/10 PO 224 Azithromycin 250 MG DAILY 06/10 1000 DC 06/10 PO 0958 Budesonide/ 2 PUF BID 06/10 2200 CAN Formoterol Fumarate INH Budesonide/ 2 PUF BID 06/08 2200 AC 06/10 Formoterol Fumarate INH 2241 Carbidopa/Levodopa 1.5 TAB TID 06/08 1600 AC 06/10 PO 2241 Ciprofloxacin 500 MG Q12H 06/10 1137 AC 06/10 PO 06/14 1136 2322 Fluoxetine HCl 20 MG DAILY 06/09 1000 AC 06/10 PO 0959 Ipratropium [place] 2.5 ML BID 06/09 1000 AC 06/10 INH 2000 Prednisone 10 MG DAILY 06/16 1000 AC PO 06/18 0959 Prednisone 20 MG DAILY 06/14 1000 AC PO 06/16 0959 Prednisone 30 MG DAILY 06/12 1000 AC PO 06/14 0959 Prednisone 40 MG DAILY 06/11 1000 CAN PO 06/18 0959 Prednisone 40 MG DAILY 06/11 1000 AC PO 06/12 0959 Prednisone 40 MG DAILY 06/10 1000 DC 06/10 PO 06/11 1001 0959 Last 24 Hrs of Lab/Jude Results Last 24 Hrs of Labs/Mics: Laboratory Tests 06/11/17 0759: Anion Gap 9, Estimated GFR > 60, BUN/Creatinine Ratio 41.7 H, PT Pending, INR Pending, CBC w Diff Pending, WBC Pending, RBC Pending, Hgb Pending, Hct Pending, MCV Pending, MCH Pending, RDW Pending, Plt Count Pending, MPV Pending, PUBS MCHC Pending Assessment/Plan Assessment: 77 y/o female with past medical history of asthma, COPD, recurrent pulmonary embolism on Coumadin, Parkinson's disease with gait instability presented to the ED with severe shortness of breath, wheezing and dry cough. Problem list: 1. Pneumonia versus Bronchitis 2. Supratherapeutic INR Plan: 1. Pneumonia versus Bronchitis * In the setting of improvement in wheezing, continue PO Prednisone taper * Sputum cultures show yeast (?colonization). We'll continue to monitor for evidence of GNR * Follow-up chest x-ray PA/lateral which showed no consolidation * Continue with nebulizer treatments, incentive spirometry * Continue Cipro BID PO for 5 days. * Patient is deconditioned and ws evlautaed by PT who recommend STR upon discharge. She is stable to be discahrged, pending availaibity of bed. 2. Supratherapeutic INR * INR 4.68 up from 3.95 on admission. Labs today pending. * For no wwill hold off switching to Eliquis. This can be done in STR. * Likely secondary to azithromycin. cipro use and disruption of gut janie * We'll continue to hold Coumadin, trend INR daily for target between 2 and 3 * If concern for bleeding will give one-time vitamin K 3. Parkinson's disease * Continue Sinemet, amantadine Problem List: 1. Supratherapeutic INR 2. Pneumonia Pain Ratin Pain Location: n/a Pain Goal: Remain pain free Pain Plan: tyelnol Tomorrow's Labs & Rationales: INR - Coumdain Discharge Plan Discharge Disposition: STR/NH Stable for Discharge? Yes Anticipated Discharge (Day): today
--- NOTE | 2017-06-11 09:20 | Discharge Summary ---
Visit Information Visit Dates Admission Date: 06/08/17 Discharge Date: 06/11/17 Hospital Course Course Attending Physician: ZAHIRA ATKINSON MD Primary Care Physician: ZAHIRA ATKINSON MD Consulting Request: Consulting Specialty: Pulmonary Disease Hospital Course: 77 y/o Ukrainian speaking female with past medical history of asthma, COPD, recurrent pulmonary embolism on Coumadin, Parkinson's disease with gait instability presented to the ED with severe shortness of breath, wheezing and dry cough. Vitals BP: 135/72, RR: 20, pulse: 82, A/F, saturating 94% on RA. Physical exam pertinent for dry mucous membranes and b\l coarse ronchi, normal S1, S2, no murmers, rubs, and abdominal exam was benign. Examination of lower extremity revealed 2+ b/l lower extremity edema. Labs pertinent for no leukocytosis, normal H&H: 13.8/41.5, platelet 194,000. Serum chemistries Na: 139, K: 4.0, HCO3: 25, serum glucose elevated to 136, normal BUN/Cr: 23/0.6. LFTs unremarkable, with AST/ALT of 16/17, trop <0.01, pro -BNP: 259. INR supratherapeutic 3.95, urine analysis revealed light, few bacteria, urinary hemoglobin. CXR: There is a small opacity within the right lateral midlung that may reflect atelectasis versus developing consolidation. Apparent mild bibasilar opacities may reflect atelectasis versus overlapping soft tissues. In the ER she received Zmax and Ceftriaxone and a dose of Solumedrol 125mg X1. She was admitted to [facility] and the following problems were addressed: #Shortness of breath - She was started on azithromycin for acute bronchitis and switched to Ciprofloxacin as her LRC showed growth of GNR. She is to compolete a 7 day course of Abx. Of note, her blood cultures showed NGTD. #Hx of Parkinsons She was continued on Sinemet 1.5tab (25-100) daily, and Rotigotine patch 6mg /24 hrs. #Depression She was continued on Fluoxetine. Patient denied any suicidal or homicidal ideation # Hx of DVT - She was on Coumadin and had a supratherpeutic INR, when she presented to the hospital. Warfarin was held,a dn resumed upon discharge as her INRwas 2.61. Goal INR to be maintaind b/w 2-3. Consderation to switching her on Eliquis was held at this time, an will be cosnidered as an outpatient. Complications: None Allergies: Coded Allergies: NO KNOWN ALLERGIES (05/18/16) Significant Procedures: SERVICE DATE: 06/08/17 EXAM TYPE: RAD - XRY-PORTABLE CHEST XRAY FINDINGS: Lungs are again noted to be hyperinflated. The patient is rotated. Right lung base is not entirely included on this study. Mild bibasilar opacities likely reflect atelectasis and/or artifact from overlying soft tissues. There is a focal airspace opacity within the lateral aspect of the right midlung that may reflect atelectasis versus early consolidation. Lungs are otherwise clear. Cardiac silhouette size is normal with rotation limiting cardiac assessment. Enchondroma versus bone infarct within the proximal left humerus. There are no acute osseous findings. IMPRESSION: Rotation limited study. There is a small opacity within the right lateral midlung that may reflect atelectasis versus developing consolidation. Apparent mild bibasilar opacities may reflect atelectasis versus overlapping soft tissues. Follow-up recommended to document resolution. SERVICE DATE: 06/09/17 EXAM TYPE: RAD - XRY-CHEST XRAY, PA AND LATERAL FINDINGS: The heart, great vessels, pulmonary vasculature and mediastinum are stable and unremarkable, accounting for rotation. The lungs show no focal infiltrate, effusion or pneumothorax. There is mild hyperinflation. There is no acute osseous abnormality. There have been prior lower thoracic vertebral plasties. The previously questioned proximal left humeral enchondroma versus bone infarct is partially included. IMPRESSION: No active cardiopulmonary disease. Disposition Summary Disposition Principal Diagnosis: Pneumonia Supratherpeutic INR Additional Diagnosis: Parkinson's disease Asthma Recurrent pulmonary embolism Discharge Disposition: home health services Discharge Instructions General Discharge Information Code Status: Full Code Patient's Diet: Heart Healthy Patient's Activity: As tolerated Follow-Up Instructions/Appts: Please follow up with your primary cre phsician in one week. Please HOLD Coumadin as your INR is supratherapeutic. Please resume to maintain INR 2-3. Please follow up with your dat instructor in one week. Medications at Discharge Discharge Medications: Continue taking these medications: Amantadine HCl (Amantadine) 100 MG TABLET 1 Tablet ORAL TWICE DAILY Comments: Last Taken:06/11/17 Time:1004A.M Carbidopa/Levodopa (Carbidopa-Levo 25-100 MG Odt) 25 MG-100 MG TAB.RAPDIS 1.5 Tablet ORAL THREE TIMES DAILY Comments: Last Taken:06/11/17 Time:10:04A.M Fluoxetine HCl (Fluoxetine HCl) 20 MG CAPSULE 1 Capsule ORAL DAILY Comments: Last Taken:06/11/17 Time:10:04A.M Rotigotine (Neupro) 6 MG/24 HOUR PATCH.TD24 1 Patch On the skin DAILY Hydrocodone/Acetaminophen (Hydrocodon-Acetaminoph 7.5-325) 1 EACH TABLET 1 Tablet ORAL EVERY 4 HOURS NEEDED Qty = 60 Comments: NOT GIVEN THIS ADMISSION Warfarin Sodium (Coumadin) 2.5 MG TABLET 1 Tablet ORAL SEE INSTRUCTIONS Qty = 90 Instructions: SUNDAY/FRIDAYS TAKES 5 MG SUNDAY/SUNDAY/SUNDAY/SUNDAY/SUNDAY TAKES 2.5 MG Comments: Last Taken:NOT GIVEN THIS ADMISSION Time:Please dose to maintain INR of 2-3. Ipratropium/Albuterol Sulfate (Iprat-Albut 0.5-3(2.5) MG/3 Ml) 3 ML AMPUL.NEB 1 Inhalation Inhale Solution via Nebulizer EVERY 6 HOURS NEEDED as needed for SHORTNESS OF BREATH Qty = 360 Comments: Last Taken:06/11/17 Time:8:22A.M Budesonide (Budesonide) 0.25 MG/2 ML AMPUL.NEB 1 Vial Inhale Solution TWICE DAILY Qty = 120 Comments: NOT GIVEN THIS ADMISSION Start taking the following new medications: Ciprofloxacin HCl (Cipro) 500 MG TABLET 500 Milligram ORAL Q12H Qty = 11 No Refills Comments: Last Taken:06/11/17 Time:11:03A.M Prednisone (Prednisone) 10 MG TABLET 1 Tablet ORAL As Directed Qty = 20 No Refills Instructions: On Take 06/11-06/12 40 MG 06/13-06/14 30 MG 06/15-06/16 20 MG 06/17-06/18 10 MG Then stop Comments: Last Taken:06/11/17 Time:10:03A.M Copies To: CH[place] OLGUIN,ZAHIRA CENTENO MD,TEDDY S. Attending MD Review Statement Documenting Attending: SOFIA BLAND MD
[2017-06-11 09:24] LABS: ABSOLUTE BASOPHIL COUNT 0 /CUMM (0.0-0.2); ABSOLUTE EOSINOPHIL COUNT 0 /CUMM (0.0-0.7); ABSOLUTE GRANULOCYTE CT 8.5 /CUMM (1.4-6.5); ABSOLUTE MONOCYTE COUNT 0.8 /CUMM (0.10-0.60); BASOPHIL % 0.3 % (0.0-2.0); EOSINOPHIL % 0.4 % (0-5); GRANULOCYTE % 81.7 % (42.2-75.2); HEMATOCRIT 42.4 % (37-47); MEAN CORPUSCULAR HGB 29.3 PG (27.0-31.0); MEAN CORPUSCULAR HGB CONC 32.8 G/DL (33.0-37.0); MEAN CORPUSCULAR VOLUME 89.5 FL (81.0-99.0); MEAN PLATELET VOLUME 11.4 FL (7.4-10.4); PLATELET COUNT 207 /CUMM (130-400); RBC DISTRIBUTION WIDTH 14.4 % (11.5-14.5); RED BLOOD CELL CT 4.73 /CUMM (4.20-5.40); WHITE BLOOD CELL COUNT 10.4 /CUMM (4.8-10.8)
[2017-06-11 09:30] LABS: PT 27.1 SEC (9.4-12.5)
--- NOTE | 2017-06-11 09:56 | PN- Att Addend ---
Attending Addendum Attending Brief Note Patient reports improved symptoms. She is currently off oxygen. Patient and her requesting for home discharge however physical therapy has recommended STR. General Appearance: Alert, No Acute Distress Skin: Grossly normal HEENT: PEERLA Neck: Supple, No JVD Cardiovascular: Regular Rate, Normal S1, Normal S2, No Murmurs Lungs: Generalized coarse wheeze Abdomen: Normal Bowel Sounds, Soft, No Tenderness Assessment 77-year-old female with history of asthma, COPD, recurrent PE on Coumadin and Parkinson's presenting with shortness of breath and productive cough for 3 days duration. She does not have a fever or leukocytosis and chest x-ray is normal. She is currently being treated for bronchitis with steroids and Cipro since she is growing gram-negative rods in her sputum and she has significant mucus production. Plan Cipro for total 7 days Prednisone taper TRC and nebs Out of bed to chair and ambulate patient Continue other home medication Hold Coumadin for subtherapeutic INR STR placement Current Medications Sig/Mark Start time Last Medication Dose Route Stop Time Status Admin Albuterol Sulfate 3 ML BID 06/09 1000 AC 06/11 INH 0822 Amantadine HCl 100 MG BID 06/08 2200 AC 06/10 PO 2241 Azithromycin 250 MG DAILY 06/10 1000 DC 06/10 PO 0958 Budesonide/ 2 PUF BID 06/10 2200 CAN Formoterol Fumarate INH Budesonide/ 2 PUF BID 06/08 2200 AC 06/10 Formoterol Fumarate INH 2241 Carbidopa/Levodopa 1.5 TAB TID 06/08 1600 AC 06/10 PO 2241 Ciprofloxacin 500 MG Q12H 06/10 1137 AC 06/10 PO 06/14 1136 2322 Fluoxetine HCl 20 MG DAILY 06/09 1000 AC 06/10 PO 0959 Ipratropium [place] 2.5 ML BID 06/09 1000 AC 06/11 INH 0822 Prednisone 10 MG DAILY 06/16 1000 AC PO 06/18 0959 Prednisone 20 MG DAILY 06/14 1000 AC PO 06/16 0959 Prednisone 30 MG DAILY 06/12 1000 AC PO 06/14 0959 Prednisone 40 MG DAILY 06/11 1000 CAN PO 06/18 0959 Prednisone 40 MG DAILY 06/11 1000 AC PO 06/12 0959 Prednisone 40 MG DAILY 06/10 1000 DC 06/10 PO 06/11 1001 0959 Laboratory Tests 06/11 0759 Chemistry Sodium (137 - 145 mmol/L) 140 Potassium (3.5 - 5.1 mmol/L) 3.9 Chloride (98 - 107 mmol/L) 102 Carbon Dioxide (22 - 30 mmol/L) 28 Anion Gap (5 - 16) 9 BUN (7 - 17 mg/dL) 25 H Creatinine (0.5 - 1.0 mg/dL) 0.6 Estimated GFR (>60 ml/min) > 60 BUN/Creatinine Ratio (7 - 25 %) 41.7 H Coagulation PT Pending INR Pending Hematology CBC w Diff Pending WBC Pending RBC Pending Hgb Pending Hct Pending MCV Pending MCH Pending RDW Pending Plt Count Pending MPV Pending PUBS MCHC Pending Vital Signs Date Time Temp Pulse Resp B/P B/P Pulse O2 O2 Flow FiO2 Mean Ox Delivery Rate 06/11 0836 95 Room Air 06/11 0647 97.5 72 18 132/76 93 Room Air 06/11 0000 Room Air 06/10 2225 97.9 80 19 118/70 91 Room Air 06/10 2000 93 Room Air 06/10 1526 97.9 89 20 132/74 93 Room Air 06/10 1039 93 Room Air Room Air
[2017-06-11] MEDS ORDERED: CIPRO500 M1 PO (10:01)
--- NOTE | 2017-06-11 10:03 | Patient Discharge Instructions ---
Discharge Instructions General Discharge Information You were seen/treated for: - Pneumonia - Supratherapeutic INR Special Instructions: Please follow up with your primary cre phsician in one week. Please repeat INR in 2 days and have it faxed to your primary care phsyician. Dose to maintain INR 2-3. This AM INR was 2.61. Please follow up with your manager telemetry in one week. Diet Recommended Diet: Heart Healthy Activity Activity Self Limited: Yes Acute Coronary Syndrome Inclusion Criteria At DC or during hospital stay patient has or had the following: ACS DIAGNOSIS No Discharge Core Measures Meds if any: Prescribed or Continued at Discharge Meds if any: NOT Prescribed or Continued at Discharge Congestive Heart Failure Inclusion Criteria At DC or during hospital stay patient has or had the following: CHF DIAGNOSIS No Discharge Core Measures Meds if any: Prescribed or Continued at Discharge Meds if any: NOT Prescribed or Continued at Discharge Cerebrovascular accident Inclusion Criteria At DC or during hospital stay patient has or had the following: CVA/TIA Diagnosis No Discharge Core Measures Meds if any: Prescribed or Continued at Discharge Meds if any: NOT Prescribed or Continued at Discharge Venous thromboembolism Inclusion Criteria VTE Diagnosis No VTE Type NONE VTE Confirmed by (Test) NONE Discharge Core Measures - Per Current guidelines, there needs to be overlap - treatment for the first 5 days of Warfarin therapy. - If discharged on Warfarin prior to 5 days of - overlap therapy, the patient will need to be - assessed for post discharge needs including - *Post discharge parental anticoagulation - *Warfarin and/or parental anticoagulation education - *Follow up date to check INR post discharge At least 5 days overlap therapy as Inpatient No Meds if any: Prescribed or Continued at Discharge Note: Overlap Therapy is Warfarin and Anticoagulant Meds if any: NOT Prescribed or Continued at Discharge
--- NOTE | 2017-06-11 10:20 | PN- Pulmonary ---
Subjective HPI/Critical Care Issues: Doing well afebrile vss difficulty walking Objective Current Medications: Current Medications Sig/Mark Start time Last Medication Dose Route Stop Time Status Admin Acetaminophen 650 MG Q4P PRN 06/11 1000 AC PO Albuterol Sulfate 3 ML BID 06/09 1000 AC 06/11 INH 0822 Amantadine HCl 100 MG BID 06/08 2200 AC 06/11 PO 1004 Azithromycin 250 MG DAILY 06/10 1000 DC 06/10 PO 0958 Budesonide/ 2 PUF BID 06/10 2200 CAN Formoterol Fumarate INH Budesonide/ 2 PUF BID 06/08 2200 AC 06/11 Formoterol Fumarate INH 1004 Carbidopa/Levodopa 1.5 TAB TID 06/08 1600 AC 06/11 PO 1004 Ciprofloxacin 500 MG Q12H 06/10 1137 AC 06/10 PO 06/14 1136 2322 Fluoxetine HCl 20 MG DAILY 06/09 1000 AC 06/11 PO 1004 Ipratropium [place] 2.5 ML BID 06/09 1000 AC 06/11 INH 0822 Prednisone 10 MG DAILY 06/16 1000 AC PO 06/18 0959 Prednisone 20 MG DAILY 06/14 1000 AC PO 06/16 0959 Prednisone 30 MG DAILY 06/12 1000 AC PO 06/14 0959 Prednisone 40 MG DAILY 06/11 1000 CAN PO 06/18 0959 Prednisone 40 MG DAILY 06/11 1000 AC 06/11 PO 06/12 0959 1004 Prednisone 40 MG DAILY 06/10 1000 DC 06/10 PO 06/11 1001 0959 Vital Signs & I&O Last 24 Hrs of Vitals and I&O: Vital Signs Date Time Temp Pulse Resp B/P B/P Pulse O2 O2 Flow FiO2 Mean Ox Delivery Rate 06/11 0836 95 Room Air 06/11 0647 97.5 72 18 132/76 93 Room Air 06/11 0000 Room Air 06/10 2225 97.9 80 19 118/70 91 Room Air 06/10 2000 93 Room Air 06/10 1526 97.9 89 20 132/74 93 Room Air 06/10 1039 93 Room Air Room Air Intake & Output 06/11 1600 06/11 0800 06/11 0000 Intake Total 100 200 Output Total 200 1200 Balance -100 -1000 Intake, Oral 100 200 Number 2 Bowel Movements Output, Urine 200 1200 Impression/Plan Impression/Plan Impression/Plan: cxr cxr clear General Appearance Alert, Oriented X3, Cooperative, No Acute Distress HEENT Atraumatic, PERRLA, EOMI, dry mucous membranes Neck Supple, No JVD, No thryomegaly, +2 Carotid Pulse wo Bruit Cardiovascular Regular Rate, Normal S1, Normal S2, No Murmurs Lungs b/l ronchi - right>>left Abdomen Normal Bowel Sounds, Soft, No Tenderness Neurological Normal Gait, Normal Speech, Strength at 5/5 X4 Ext, Sensation Intact, Cranial Nerves 3-12 NL, Reflexes 2+, cogwheel rigidity Extremities b/l 2+ edema Vascular Normal Pulses, Pulses Symmetrical IMPRESSION This is an unfortunate lady with very end-stage Parkinson's disease, significant asthma, mild COPD, mostly reversible airway disease now has * Acute shortness of breath mild wheezing suggestive of mild acute asthma exacerbation, with bronchitis unlikely pna * Probable bacterial bronchitis, pt has had pseudomonas before * Previous chronic steroid use has been off prednisone lately * Significant Parkinson's with on and off aspiration prob * Chronic pulmonary embolism on warfarin * Depression with anxiety * No clinical evidence suggestive of recurrent venous thromboembolism REC CONT steroids, wean down to 20 in am for one day, then 10 qd for 3 days and then 5 qd for 3 days and dc CIpro for total of five days and dc Watch inr COnt parkinson meds Nebs atc Aggresive PT eval Start budesonide neb bid COnt fluoxetinePT to see Follow INR Pt has chronic venous insuff prob with chronic edema needs compression stockings Will consider transition to low dose eliquis 2.5 bid after dc (please ask out pt pharmacy if this is covered) Once the antidote is available hopefully soon (high fall risk due to parkinson)
--- NOTE | 2017-06-11 14:06 | NUR ---
wound care: requested by nursing staff to evaluate pt for skin alterations present on admission - present at [facility] - stated pt sees cold saw operator in [place] in [facility] - pt noted with (2) <1 cm corns / callused areas to right 3rd toe and left 5th inner toe - c/o slight discomfort - no further c/o - + strong dp and pt pulses dominick recommednation: no topical wound care indicated at this time - f/u [facility] podiatry
[2017-06-11 15:02] VITALS: BP 112/64
== END 2017-06-11 15:00 | disposition home health service (06) | DRG 203 ==
LOC: DELPENDDIS → ERH 09:26 → 2NB 11:41 → ERHI 11:41 → CANRESERV 12:28 → ENRESERV 12:28 → ENTRNSPT 13:06 → EDTRNSPTSTS 13:20 → EDTRNSPT 13:20 → 2NB 13:27 → CMPTRNSPT 14:00 → ENPENDDIS 06-11 11:30 → 2NB 06-11 15:00
PROVIDERS: Internal Medicine; Internal Medicine Infectious Disease; Physician Assistant Medical; ADMIT Internal Medicine
DX: J20.9 Acute bronchitis, unspecified (principal); G20 Parkinson's disease; J44.9 Chronic obstructive pulmonary disease, unspecified; Z86.711 Personal history of pulmonary embolism; Z79.01 Long term (current) use of anticoagulants; F32.9 Major depressive disorder, single episode, unspecified; F41.9 Anxiety disorder, unspecified; J45.909 Unspecified asthma, uncomplicated; R79.1 Abnormal coagulation profile; T45.515A Adverse effect of anticoagulants, initial encounter
CPT/HCPCS: 2NBSP; 36415; 81001; 82436; 87040; 87070; 87071; 87449; 87450; 93005; 93010; 96374; 96375; 97110-GO; 97116-GO; 97161-GP; 97530-GO; J0456; J0696; J2920; J2930; J3490; J7040; J7512

== ENCOUNTER 2018-01-26 08:19 | Inpatient (IN) | payer OTHER ==
[~2018-01-26] VITALS: Ht 149.9 cm; Wt 60.8 kg
[~2018-01-26 08:19] MED LIST changes: +CIPRO500 M1 PO; +GUAIFENESIN ER600 MG PO; +PREDNISONE5 M1 PO; +PROAIR HFA8.5 GM INH; +SYMBICORT 16010.2 GM INH; +ZITHROMAX250 M2 PO
--- NOTE | 2018-01-26 08:50 | ED DYSPNEA/ASTHMA COMPLAINT ---
History of Present Illness General Chief Complaint: Dyspnea (COPD, CHF, Other) Stated Complaint: SOB Source: patient Exam Limitations: poor historian Vital Signs & Intake/Output Vital Signs & Intake/Output Vital Signs Date Time Temp Pulse Resp B/P B/P Pulse O2 O2 Flow FiO2 Mean Ox Delivery Rate 01/26 1757 Nasal 1.5L Cannula 01/26 1744 99.3 99 20 142/86 94 Nasal 1.5L Cannula 01/26 1632 98.1 96 18 151/83 95 Nasal 1.5L Cannula 01/26 1447 98.1 88 20 132/64 94 01/26 1417 Nasal 2.0L Cannula 01/26 1415 98.7 93 18 164/80 94 Nasal 2.0L Cannula 01/26 1130 98.0 92 20 142/70 95 01/26 0922 98.8 81 18 133/82 97 01/26 0820 97.0 96 18 94 Room Air Room Air Allergies Coded Allergies: NO KNOWN ALLERGIES (NONE 10/02/17) Reconcile Medications Albuterol Sulfate (Proair Hfa) 90 MCG HFA.AER.AD 2 PUF INH Q4-6 PRN PRN SHORTNESS OF BREATH . Amantadine HCl (Amantadine) 100 MG TABLET 1 TAB PO BID PARKINSONS (Reported) Azithromycin (Zithromax) 250 MG TABLET 1 DP PO AD ABX (Reported) 2 the first day followed by 1 for days 2-5 Budesonide 0.25 MG/2 ML AMPUL.NEB 1 Vial INH/EVGENY TID COPD (Reported) Carbidopa/Levodopa (Carbidopa-Levo 25-100 MG Odt) 25 MG-100 MG TAB.RAPDIS 1.5 TAB PO TID PARKINSONS (Reported) Fluoxetine HCl 20 MG CAPSULE 1 CAP PO DAILY DEPRESSION (Reported) Ipratropium/Albuterol Sulfate (Iprat-Albut 0.5-3(2.5) MG/3 Ml) 3 ML AMPUL.NEB 1 INH NEB Q6-PRN PRN SHORTNESS OF BREATH (Reported) Prednisone 5 MG TABLET 1 TAB PO AD STEROID (Reported) Rotigotine (Neupro) 6 MG/24 HOUR PATCH.TD24 1 PAT TOP DAILY PARKINSONS ( Reported) Warfarin Sodium (Coumadin) 2.5 MG TABLET 0.5-1 TAB PO AD BLOOD THINNER ( Reported) Triage Note: PT TO ED WITH C/O "I CAN'T BREATHE", PER PT AND FAMILY PT SEEN BY PMD AND GIVEN ANTIBIOTIC, BUT NOW FEELING ANY BETTER. CONGESTED NON-PRODUCTIVE COUGH NOTED. TEMP 97.0 IN TRIAGE. Triage Nurses Notes Reviewed? yes HPI: Patient presents for evaluation of gradual onset shortness of breath over this past week. Patient's symptoms have worsened and have become severe despite the use of nebulizers prednisone and antibiotics as prescribed by her feed mill supervisor Dr. Regalado. She has had a cough productive of mild phlegm and "a little" leg swelling. She also has been wheezing but denies associated fever or chest pain. Patient has a history of COPD. Symptoms worsened with exertion but nothing seems to make her feel better. Her dyspnea continues in the emergency department. Past History Travel History Traveled to [place] past 21 day No Medical History Any Pertinent Medical History? see below for history Neurological: Parkinson's disease EENT: NONE Cardiovascular: NONE Respiratory: asthma, COPD, pulmonary embolism Gastrointestinal: GERD Hepatic: NONE Renal: NONE Musculoskeletal: NONE Psychiatric: anxiety Endocrine: NONE Blood Disorders: NONE Cancer(s): NONE BELL CAPTAIN/Reproductive: NONE History of MRSA: No History of VRE: No History of CDIFF: No Influenza Vaccine: 09/11/17 Surgical History Surgical History: L KNEE REPLACEMENT BACK SURGERY Psychosocial History Who do you live with Spouse Services at Home None What is your primary language Belarusian Tobacco Use: Never used ETOH Use: denies use Illicit Drug Use: denies illicit drug use Family History Family History, If Any: Relation not specified for: *No pertinent family history Hx Contributory? No Review of Systems Review of Systems Constitutional: Reports: no symptoms. EENTM: Reports: no symptoms. Respiratory: Reports: see HPI. Cardiovascular: Reports: no symptoms. GI: Reports: no symptoms. Genitourinary: Reports: no symptoms. Musculoskeletal: Reports: no symptoms. Skin: Reports: no symptoms. Neurological/Psychological: Reports: no symptoms. Hematologic/Endocrine: Reports: no symptoms. Immunologic/Allergic: Reports: no symptoms. All Other Systems: Reviewed and Negative Physical Exam Physical Exam Respiratory: SEE BELOW Comments: Gen.: Well-nourished, well-developed, no acute respiratory distress. Head: Normocephalic, atraumatic. Eyes: Normal inspection bilaterally Ears: Normal inspection bilaterally Nose: Normal inspection Throat/mouth : Moist mucosa Neck: Supple, full range of motion, no goiter, no JVD Heart: Regular rate and rhythm, no murmurs rubs or gallops Lungs: Diminished air entry bilaterally with scattered wheezing Chest: Nontender Back: Normal range of motion Abdomen: Soft, nontender, nondistended, normal bowel sounds Extremities: Normal range of motion grossly, equal radial pulses, no cyanosis, bilateral lower extremity 2+ pitting edema, calves nontender Neurologic: Cranial nerves grossly intact, speech is clear Skin: warm and dry Psychiatric: Calm, cooperative, no apparent delusions or hallucinations Core Measures ACS in differential dx? No CVA/TIA Diagnosis No Sepsis Present: No Sepsis Focused Exam Completed? No Progress Differential Diagnosis: asthma, bronchitis, CHF, COPD, pneumonia Plan of Care: Orders Procedure Date/time Status PROTHROMBIN TIME 01/27 0600 Active CBC WITHOUT DIFFERENTIAL 01/27 0600 Active BASIC ELECTROLYTES PLUS BUN&CR 01/27 0600 Active Heart Healthy Diet 01/26 D Active SPECIMEN TO BE OBTAINED 01/26 1609 Active SPECIMEN TO BE OBTAINED 01/26 1608 Active Pathway - chart 01/26 1603 Active House Staff 01/26 1603 Active PROTHROMBIN TIME 01/26 1601 Complete Weight 01/26 1556 Complete Vital Signs 01/26 1556 Active Teach/Educate 01/26 1556 Active Pain Treatment and Response 01/26 1556 Active Nutritional Intake, Monitor 01/26 1556 Active Isolation 01/26 1556 Active Intake & Output 01/26 1556 Active Patient Care Conference 01/26 1556 Active Activity/Ambulation 01/26 1556 Active RAPID VIRAL INFLUENZA A 01/26 1552 Complete Patient Data 01/26 1402 Active Misc Message 01/26 1345 Active ED Holding Orders 01/26 1345 Active Admit to inpatient 01/26 1345 Active Vital Signs 01/26 1345 Active Code Status 01/26 1345 Active CASE MANAGEMENT CONSULT 01/26 1241 Active Intake & Output 01/26 0929 Active TROPONIN LEVEL 01/26 0849 Complete CBC WITHOUT DIFFERENTIAL 01/26 0849 Complete BASIC METABOLIC PANEL 01/26 0849 Complete EKG 01/26 0849 Active TRC EVALUATION (GEN) 01/26 UNK Active VTE Mechanical Prophylaxis 01/26 UNK Active Current Medications Sig/Mark Start time Last Medication Dose Stop Time Status Admin Azithromycin 250 MG DAILY 01/27 1000 AC (Zithromax) Fluoxetine HCl 20 MG DAILY 01/27 1000 AC (Prozac) Non-Formulary See Dose DAILY 01/27 1000 UNVr Medication Insts (1) (NON FORMULARY) Amantadine HCl 100 MG BID 01/26 2200 AC (Symmetrel) Carbidopa/Levodopa 1.5 TAB TID 01/26 2200 CAN (Sinemet 25/250MG) Carbidopa/Levodopa 1.5 TAB TID 01/26 2200 AC (Sinemet 25/100MG) Guaifenesin 600 MG Q12 01/26 2200 AC (Mucinex) Methylprednisolone 40 MG Q8 01/26 2200 AC (Solumedrol) Acetaminophen 500 MG Q6P PRN 01/26 1615 AC (Tylenol) Dose Instructions: (1)Non-Formulary Medication (NON FORMULARY): NEUPRO 6MG/24HR 1 PATCH DAILY Laboratory Tests 01/26/18 1624: PT 20.0 H, INR 1.92 H 01/26/18 0856: Anion Gap 9, Estimated GFR > 60, BUN/Creatinine Ratio 46.7 H, Glucose 142 H, Calcium 9.4, Troponin I < 0.01, CBC w Diff NO MAN DIFF REQ, RBC 4.48, MCV 89.5, MCH 29.1, MCHC 32.5 L, RDW 15.4 H, MPV 9.6, Gran % 77.8 H, Lymphocytes % 11.0 L, Monocytes % 6.8, Eosinophils % 4.0, Basophils % 0.4, Absolute Granulocytes 5.0, Absolute Lymphocytes 0.7 L, Absolute Monocytes 0.4, Absolute Eosinophils 0.3, Absolute Basophils 0 Microbiology 01/260 NASOPHARYN: Influenza Virus A & B Rapid Smear - COMP Diagnostic Imaging: Viewed by Me: Radiology Read. Discussed w/RAD: Radiology Read. CXR Impression: no acute abnormality Initial ED EKG: NSR, rate (82), LAD Comments: 01/26/2018 10:50:32 AM I observed patient going to the bathroom and she seemed to require an assist OF 2. Her states that this is typical for her. She did appear mildly dyspneic but not distressed. 01/26/2018 1:41:44 PM despite nebulizers and IV Solu-Medrol patient continues to have wheezing on exam. Her states that she seems nearly as bad as when she first arrived. After a lengthy discussion and some indecision the patient has decided to stay in the hospital for continued nebulizer treatments IV steroids and evaluation by her feed mill supervisor. Departure Departure Disposition: STILL A PATIENT Condition: Stable Clinical Impression Primary Impression: COPD exacerbation Secondary Impressions: History of Parkinson's disease Referrals: Tomasa OLGUIN,Mihir Tyler (PCP/Family) Departure Forms: Customer Survey General Discharge Information Admission Note Spoke With: Teodoro Salvador MD Documentation of Exam: Documentation of any treatments & extenuating circumstances including Concerns Regarding Discharge (functional status, medication knowledge or non-compliance, living conditions, etc.) that warrant an admission rather than observation: Patient has persistent wheezing and appears dyspneic despite 2 nebulizer treatments and IV Solu-Medrol. In addition she has a history of Parkinson disease with baseline gait instability. She currently requires oxygen supplementation to maintain normal oxygen saturations. I do not feel she is a good candidate for outpatient management under the circumstances as she has no home O2 and I feel the exertion of outpatient management potentially worsen her clinical condition and result in respiratory failure or falling with injury. She would be at risk of returning in worse clinical condition. I feel she now requires hospitalization for intermittent pulse oximetry, nebulizer treatments and IV steroids. In addition she should have evaluation by a feed mill supervisor for optimization of medical management. Given this patient's age and the complicating past history of Parkinson's disease which can compromise both her respiratory effort and her gait, I suspect she will have a prolonged and somewhat complicated treatment and recovery requiring a multi-day hospitalization. Critical Care Note Critical Care Note Critical Care Time: 30-74 min
[2018-01-26 09:09] LABS: ABSOLUTE BASOPHIL COUNT 0 /CUMM (0.0-0.2); ABSOLUTE EOSINOPHIL COUNT 0.3 /CUMM (0.0-0.7); ABSOLUTE LYMPH COUNT 0.7 /CUMM (1.2-3.4); ABSOLUTE MONOCYTE COUNT 0.4 /CUMM (0.10-0.60); BASOPHIL % 0.4 % (0.0-2.0); GRANULOCYTE % 77.8 % (42.2-75.2); HEMATOCRIT 40.1 % (37-47); MEAN CORPUSCULAR HGB 29.1 PG (27.0-31.0); MEAN CORPUSCULAR HGB CONC 32.5 G/DL (33.0-37.0); MEAN CORPUSCULAR VOLUME 89.5 FL (81.0-99.0); MEAN PLATELET VOLUME 9.6 FL (7.4-10.4); PLATELET COUNT 224 /CUMM (130-400); RBC DISTRIBUTION WIDTH 15.4 % (11.5-14.5); RED BLOOD CELL CT 4.48 /CUMM (4.20-5.40); WHITE BLOOD CELL COUNT 6.5 /CUMM (4.8-10.8)
--- NOTE | 2018-01-26 10:36 | RADIOLOGY REPORT ---
EXAMINATION: XR PORTABLE CHEST CLINICAL INFORMATION: Dyspnea and wheezing COMPARISON: October 02, 2017 TECHNIQUE: Portable AP view of the chest was obtained. FINDINGS: There is hyperinflation present. No acute parenchymal disease, pneumothorax, or pleural effusion seen. Heart normal size. No evidence of pulmonary edema. Retrocardiac density seen which may represent small hiatal hernia or tortuous thoracic aorta. There is scoliosis of the thoracic spine convex right. IMPRESSION: No acute disease.
[2018-01-26] MEDS ORDERED: COUMADIN2.5 M1 PO (12:44)
[2018-01-26] MEDS ORDERED: ZITHROMAX250 M2 PO (12:46)
[2018-01-26] MEDS ORDERED: PREDNISONE5 M1 PO (12:46)
--- NOTE | 2018-01-26 14:23 | History & Physical ---
Kaushik OLGUIN,[facility] 01/26/18 1423: General Information and HPI MD Statement: I have seen and personally examined CARMELO MARKS and documented this H&P. The patient is a 77 year old F who presented with a patient stated chief complaint of shortness of breath. Source of Information: patient, family Exam Limitations: no limitations History of Present Illness: This is a 77 yo F with a PMH of Asthma, COPD, recurrent PE on Coumadin, Anxiety , recently admission in sep 2017 for acute hypoxic resp failure 2/2 to COPD presents to [facility] ED with c/o of shortness of breath. He reports gradual onset of shortness of breath over this past week with worsening progression depsite the use of nebulizers prednisone and antibiotics as prescribed by her motor vehicle assembler (Dr. Regalado). Shortness of breath worsening on exertion. Associated symptoms include productive cough, wheezing but no fever/chills. Denies recent sick contacts or travel. Remainder of ROS is negative for chest pain/palpitation , abdominal pain, or dysuria. Allergies/Medications Allergies: Coded Allergies: NO KNOWN ALLERGIES (NONE 10/02/17) Home Med list Albuterol Sulfate (Proair Hfa) 90 MCG HFA.AER.AD 2 PUF INH Q4-6 PRN PRN SHORTNESS OF BREATH . Amantadine HCl (Amantadine) 100 MG TABLET 1 TAB PO BID PARKINSONS (Reported) Azithromycin (Zithromax) 250 MG TABLET 1 DP PO AD ABX (Reported) 2 the first day followed by 1 for days 2-5 Budesonide 0.25 MG/2 ML AMPUL.NEB 1 Vial INH/EVGENY TID COPD (Reported) Carbidopa/Levodopa (Carbidopa-Levo 25-100 MG Odt) 25 MG-100 MG TAB.RAPDIS 1.5 TAB PO TID PARKINSONS (Reported) Fluoxetine HCl 20 MG CAPSULE 1 CAP PO DAILY DEPRESSION (Reported) Ipratropium/Albuterol Sulfate (Iprat-Albut 0.5-3(2.5) MG/3 Ml) 3 ML AMPUL.NEB 1 INH NEB Q6-PRN PRN SHORTNESS OF BREATH (Reported) Prednisone 5 MG TABLET 1 TAB PO AD STEROID (Reported) Rotigotine (Neupro) 6 MG/24 HOUR PATCH.TD24 1 PAT TOP DAILY PARKINSONS ( Reported) Warfarin Sodium (Coumadin) 2.5 MG TABLET 0.5-1 TAB PO AD BLOOD THINNER ( Reported) Past History Travel History Traveled to [place] past 21 day No Medical History Neurological: Parkinson's disease EENT: NONE Cardiovascular: NONE Respiratory: asthma, COPD, pulmonary embolism Gastrointestinal: GERD Hepatic: NONE Renal: NONE Musculoskeletal: NONE Psychiatric: anxiety Endocrine: NONE Blood Disorders: NONE Cancer(s): NONE IN FILE OPERATOR/Reproductive: NONE History of MRSA: No History of VRE: No History of CDIFF: No Influenza Vaccine: 09/11/17 Surgical History Surgical History: L KNEE REPLACEMENT BACK SURGERY Past Family/Social History Family History Relations & Conditions if any Relation not specified for: *No pertinent family history Psychosocial History Who Do You Live With? spouse Services at Home: None ETOH Use: denies use Illicit Drug Use: denies illicit drug use Review of Systems Review of Systems Constitutional: Reports: see HPI. Exam & Diagnostic Data Last 24 Hrs of Vital Signs/I&O Vital Signs Date Time Temp Pulse Resp B/P B/P Pulse O2 O2 Flow FiO2 Mean Ox Delivery Rate 01/26 1935 Nasal 2.0L Cannula 01/26 1757 Nasal 1.5L Cannula 01/26 1744 99.3 99 20 142/86 94 Nasal 1.5L Cannula 01/26 1632 98.1 96 18 151/83 95 Nasal 1.5L Cannula 01/26 1447 98.1 88 20 132/64 94 01/26 1417 Nasal 2.0L Cannula 01/26 1415 98.7 93 18 164/80 94 Nasal 2.0L Cannula 01/26 1130 98.0 92 20 142/70 95 01/26 0922 98.8 81 18 133/82 97 01/26 0820 97.0 96 18 94 Room Air Room Air Intake & Output 01/26 1600 01/26 0800 01/26 0000 Intake Total Output Total Balance Patient 61.235 kg Weight Weight Reported by Patient Measurement Method Physical Exam General Appearance Alert, Oriented X3, Cooperative Skin No Significant Lesion Skin Temp/Moisture Exam: Warm/Dry Sepsis Skin Exam (color): Normal for Ethnicity HEENT Atraumatic, PERRLA, SLIGHTLY DRY MUCOSA Neck Supple, jvd Lymphatic Cervical nl Cardiovascular Regular Rate, Normal S1, Normal S2 Lungs prominent exp wheezes b/l in all lung [place] Abdomen Normal Bowel Sounds, Soft, No Tenderness Neurological Normal Speech, Strength at 5/5 X4 Ext, Normal Tone, Sensation Intact, Cranial Nerves 3-12 NL Extremities No Edema, Normal Pulses, No Tenderness/Swelling Last 24 Hrs of Labs/Jude: Laboratory Tests 01/26/18 1624: PT 20.0 H, INR 1.92 H 01/26/18 0856: Anion Gap 9, Estimated GFR > 60, BUN/Creatinine Ratio 46.7 H, Glucose 142 H, Calcium 9.4, Troponin I < 0.01, CBC w Diff NO MAN DIFF REQ, RBC 4.48, MCV 89.5, MCH 29.1, MCHC 32.5 L, RDW 15.4 H, MPV 9.6, Gran % 77.8 H, Lymphocytes % 11.0 L, Monocytes % 6.8, Eosinophils % 4.0, Basophils % 0.4, Absolute Granulocytes 5.0, Absolute Lymphocytes 0.7 L, Absolute Monocytes 0.4, Absolute Eosinophils 0.3, Absolute Basophils 0 Microbiology 01/26 162 NASOPHARYN: Influenza Virus A & B Rapid Smear - COMP Diagnostic Data CXR Results SERVICE DATE: 01/26/18 EXAM TYPE: RAD - XRY-PORTABLE CHEST XRAY EXAMINATION: XR PORTABLE CHEST CLINICAL INFORMATION: Dyspnea and wheezing COMPARISON: October 02, 2017 TECHNIQUE: Portable AP view of the chest was obtained. FINDINGS: There is hyperinflation present. No acute parenchymal disease, pneumothorax, or pleural effusion seen. Heart normal size. No evidence of pulmonary edema. Retrocardiac density seen which may represent small hiatal hernia or tortuous thoracic aorta. There is scoliosis of the thoracic spine convex right. IMPRESSION: No acute disease. DICTATED BY: Geovany Johns MD Assessment/Plan Assessment: This is a 77 yo F with a PMH of Asthma, COPD, recurrent PE on Coumadin, Anxiety , presnts with symptoms of progressively worsening shortness of breath, cough and sputum production. Respiratory symptoms did not improve with outpatient prednisone and Azithromycin. Afebrile on presentation, no leukocytosis noted and CXR unremarkable. Impression * COPD exacerbation * Pre-renal azotemia. * Hx of chronic Diseases: Asthma, COPD, recurrent PE, Anxiety Plan Admit to gen med floor 02 supplementation to keep sats above 90% TRC/nebs status post solumedrol 120 mg, continue Solumedrol 40 mg q8h starting tomorrow Azithromycin 500mg X3 days for COPD Sputum cultures urine strept and legionella Normal saline 75ml/hr X1 Mucinex 600mg er bid Warfarin dosing per INR with goal of 2-3 Continue home meds CODE status: Full code DVT: Addressed by coumadin As Ranked By This Provider Problem List: 1. COPD exacerbation Core Measures/Misc (08/12) Acute Coronary Syndrome ACS Diagnosis: No Congestive Heart Failure Congestive Heart Failure Diagnosis No Cerebrovascular Accident CVA/TIA Diagnosis: No VTE (View Protocol) VTE Risk Factors Acute Medical Illness No Mechanical VTE Prophylaxis d/t N/A MechProphylax Ordered No VTE Pharm Prophylaxis d/t Other (already on coumadin) Sepsis (View protocol) Sepsis Present: No Teodoro Salvador MD 01/27/18 0750: Attending MD Review Statement Attending Statement Attending MD Statement: examined this patient, discuss w/resident/PA/TENNIS RACKET REPAIRER, agreed w/resident/PA/TENNIS RACKET REPAIRER, discussed with family, reviewed EMR data (avail), reviewed images, amended to note Attending Assessment/Plan: The patient is a 77 yo female with h/o asthma/COPD, h/o Parkinson's Disease, recurrent pulmonary embolism (on chronic Coumadin), & anxiety who presented in the [facility] ED with c/o persistent dyspnea/wheezing over last week. She had been seen by Dr. Regalado during the week and had been treated with oral antibiotics, nebulizer and prednisone therapy. The patient stated that in spite of interventions her symptoms were worsening and she presented in the ED for evaluation. She denied any chest pain or fever. Physical Exam: VS: T 98.0, P 96-81, R 18-22, BP 133/82-142/86, PO 94% on 2L HEENT: eyes- PERRLA, EOMI alison- dry membranes Neck: no JVD/bruits Chest: moderate diffuse expiratory wheeze with scattered rhonchi (after medrol & aerosol in ED) Cor: RRR nl S1, S2 w/o murm Abd: BS+, soft, NT Ext: tr edema, pulses 2+ Neuro: alert & oriented, very anxious, + mild Parkinsonian tremor, non-focal exam Labs/Tests - as above Impression/Plan: #Acute Asthma/COPD Exacerbation- as above, patient failed on outpatient therapy (Prednisone, Abx, aerosol) and presented with worsening of symptoms. Relatively hypoxic - ED note suggests that she is requiring oxygen to maintain normal saturations, however no sats < 88% documented. Plan: Admit to general medicine. IV Medrol (125 mg given in ED)- 40 mg q8h Aerosol- as per protocol. Nasal oxygen and titrate as able. #H/O Pulmonary Embolism- on chronic Coumadin. Plan: Continue Coumadin and maintain INR 2-3. #H/O Parkinson's Disease- stable per patient and . Plan: Continue Carbidopa/Levodopa/Neupro. #Anxiety/Depression- on Fluoxetine. Plan: Continue Fluoxetine.
[2018-01-26 17:44] VITALS: BP 142/86
[2018-01-26 21:45] VITALS: BP 118/72
--- NOTE | 2018-01-27 00:16 | Admission Certification ---
Admission Certification Certification Statement - As attending physician, I certify that at the time of - admission, based on clinical presentation, severity of - symptoms, need for further diagnostic testing and - therapeutic interventions, and risk of adverse outcomes - without in-hospital treatment, in my clinical assessment, - this patient requires an acute hospital stay for a minimum - of two nights or longer. I have also considered psychsocial - factors such as support system, advanced age, financial - issues, cognitive issues, and failed out-patient treatments, - past re-admission history, safety of patient, and lack of - compliance as applicable. Specific rationale supporting this admission is: The patient presented with dyspnea and failed OP course of Prednisone/Abx for COPD/asthma exacerbation. Needs admission for close respiratory monitoring, nasal oxygen, IV Medrol, aerosol, etc.
[2018-01-27 05:46] VITALS: BP 114/70
[2018-01-27 08:53] LABS: ABSOLUTE BASOPHIL COUNT 0 /CUMM (0.0-0.2); ABSOLUTE EOSINOPHIL COUNT 0 /CUMM (0.0-0.7); ABSOLUTE GRANULOCYTE CT 6.7 /CUMM (1.4-6.5); ABSOLUTE LYMPH COUNT 0.4 /CUMM (1.2-3.4); ABSOLUTE MONOCYTE COUNT 0.2 /CUMM (0.10-0.60); BASOPHIL % 0 % (0.0-2.0); EOSINOPHIL % 0 % (0-5); HEMATOCRIT 38.2 % (37-47); MEAN CORPUSCULAR HGB 29.4 PG (27.0-31.0); MEAN CORPUSCULAR HGB CONC 33.1 G/DL (33.0-37.0); MEAN CORPUSCULAR VOLUME 88.9 FL (81.0-99.0); MEAN PLATELET VOLUME 10.1 FL (7.4-10.4); PLATELET COUNT 206 /CUMM (130-400); RBC DISTRIBUTION WIDTH 15.2 % (11.5-14.5); WHITE BLOOD CELL COUNT 7.3 /CUMM (4.8-10.8)
[2018-01-27 09:10] LABS: PT 24.9 SEC (9.4-12.5)
[2018-01-27 10:06] LABS: GRANULOCYTE % 91.6 % (42.2-75.2)
--- NOTE | 2018-01-27 10:29 | PN- Housestaff ---
See Addendum Subjective Follow-up For: COPD exacerbation Subjective: Patient was seen and examined at bedside. No acute events overnight. No active issues. She feels a little better than yesterday and wants to go home soon. Review of Systems Constitutional: Reports: no symptoms. Objective Last 24 Hrs of Vital Signs/I&O Vital Signs Date Time Temp Pulse Resp B/P B/P Pulse O2 O2 Flow FiO2 Mean Ox Delivery Rate 01/27 0546 97.9 80 20 114/70 94 / 0240 97 Nasal 2.0L Cannula / 0000 95 Nasal 2.0L Cannula 01/26 2145 98.4 98 20 118/72 93 Nasal 1.5L Cannula 01/26 1935 Nasal 2.0L Cannula 01/26 1757 Nasal 1.5L Cannula 01/26 1744 99.3 99 20 142/86 94 Nasal 1.5L Cannula 01/26 1632 98.1 96 18 151/83 95 Nasal 1.5L Cannula 01/26 1447 98.1 88 20 132/64 94 01/26 1417 Nasal 2.0L Cannula 01/26 1415 98.7 93 18 164/80 94 Nasal 2.0L Cannula 01/26 1130 98.0 92 20 142/70 95 Intake & Output / 1600 03/04 0800 03/ 0000 Intake Total 720 425 Output Total 301 700 350 Balance -301 20 75 Intake, IV 600 225 Intake, Oral 120 200 Output, Stool 1 Output, Urine 300 700 350 Patient 134 lb Weight Weight Reported by Patient Measurement Method Physical Exam General Appearance: Alert, Oriented X3, Cooperative, Mild Distress Skin: No Rashes, No Breakdown Skin Temp/Moisture Exam: Warm/Dry Sepsis Skin Exam (color): Normal for Ethnicity HEENT: Atraumatic Cardiovascular: Normal S1, Normal S2, No Murmurs Lungs: Clear to Auscultation, Normal Air Movement Abdomen: Soft, No Tenderness Neurological: Normal Speech Extremities: No Edema Assessment/Plan Assessment: 77 yo F with a PMH of Asthma, COPD, recurrent PE on Coumadin, Anxiety, presnts with symptoms of progressively worsening shortness of breath, cough and sputum production. Respiratory symptoms did not improve with outpatient prednisone and Azithromycin. Assessment: 1. COPD exacerbation 2. Pre-renal azotemia. 3. Hx of chronic Diseases: Asthma, COPD, recurrent PE, Anxiety Plan * Continue O2 supplementation to keep sats > 92%. Currently on 2L * TRC/nebs as needed * continue Solumedrol 40 mg q8. Will taper as tolerated and condition improves. * Azithromycin 500mg X3 days for COPD. Today is day 2. * Sputum cultures - pending * urine strept and legionella - pending * Mucinex 600mg bid * Warfarin dosing per INR with goal of 2-3. * Continue home meds * Code status: Full code * DVT: On coumadin * Diet: Heart Healthy Problem List: 1. COPD exacerbation Pain Ratin Pain Location: none Pain Goal: Remain pain free Pain Plan: none Tomorrow's Labs & Rationales: CBC
[2018-01-27 15:08] VITALS: BP 130/60
[2018-01-27 22:49] VITALS: BP 147/68
[2018-01-28 06:31] VITALS: BP 138/80
--- NOTE | 2018-01-28 07:29 | PN- Housestaff ---
Stuart OLGUIN,[facility] 01/28/18 0729: Subjective Follow-up For: COPD Exacerbation Subjective: Patient was seen and examined at bedside. States that her breathing has improved and that the cough is gone. Offers no complaints. Curious to know when she can go home. Review of Systems Constitutional: Reports: no symptoms. Objective Last 24 Hrs of Vital Signs/I&O Vital Signs Date Time Temp Pulse Resp B/P B/P Pulse O2 O2 Flow FiO2 Mean Ox Delivery Rate 01/28 0834 93 Nasal 2.0L Cannula 01/28 0631 97.8 80 20 138/80 94 01/28 0000 Nasal 2.0L Cannula 01/27 2249 98.2 71 22 147/68 97 Nasal 1.0L Cannula 01/27 1650 96 Nasal 2.0L Cannula / 1508 98.8 95 20 130/60 94 Nasal 2.0L Cannula / 1307 94 Nasal 2.0L Cannula Intake & Output 01/28 1600 01/28 0800 01/28 0000 Intake Total 840 240 Output Total 400 250 Balance 440 -10 Intake, IV 600 Intake, Oral 240 240 Output, Urine 400 250 Physical Exam General Appearance: Alert, Oriented X3, Cooperative, No Acute Distress Skin: No Rashes, No Breakdown Skin Temp/Moisture Exam: Warm/Dry Sepsis Skin Exam (color): Normal for Ethnicity HEENT: Atraumatic Cardiovascular: Normal S1, Normal S2, No Murmurs Lungs: mild wheezing Abdomen: Soft, No Tenderness Neurological: Normal Speech Extremities: No Edema Assessment/Plan Assessment: 77 yo F with a PMH of Asthma, COPD, recurrent PE on Coumadin, Anxiety, presnts with symptoms of progressively worsening shortness of breath, cough and sputum production. Respiratory symptoms did not improve with outpatient prednisone and Azithromycin. Assessment: 1. COPD exacerbation 2. Pre-renal azotemia. 3. History of Asthma, COPD, recurrent PE on Coumadin, Anxiety Plan * Continue O2 supplementation to keep sats > 92%. Currently on 2L. Will wean off as tolerated. Patient does not use oxygen at home. * TRC/nebs as needed * DC Solu-Medrol. Start Prednisone tomorrow * Azithromycin 500mg * Sputum cultures - pending * urine strept and legionella - negative. * Continue Mucinex 600mg bid * Warfarin dosing per INR with goal of 2-3. Will hold Warfarin today as her INR is supratherapeutic. * Continue home meds * DVT: On coumadin * Diet: Heart Healthy * Code status: Full code Problem List: 1. COPD exacerbation Pain Ratin Pain Location: none Pain Goal: Remain pain free Pain Plan: none Tomorrow's Labs & Rationales: CBC, BEP Destiny Chase 01/28/18 1110: Attending MD Review Statement Attending Statement Attending MD Statement: examined this patient, discuss w/resident/PA/JUNIOR QA ANALYST, agreed w/resident/PA/JUNIOR QA ANALYST, discussed with family, reviewed EMR data (avail), discussed with nursing, discussed with case mgmt, reviewed images, amended to note Attending Assessment/Plan: The patient was seen and discussed with house staff. Improvement in wheezing, Change IV steroids to PO steroids, conitnue with bronchodilators. Will continue current plan of care. Patient is on 2l oxygen supplementation. Dr. Regalado her primary pulmonary MD f/u.
[2018-01-28 08:11] LABS: ABSOLUTE BASOPHIL COUNT 0 /CUMM (0.0-0.2); ABSOLUTE EOSINOPHIL COUNT 0 /CUMM (0.0-0.7); ABSOLUTE GRANULOCYTE CT 9.2 /CUMM (1.4-6.5); ABSOLUTE LYMPH COUNT 0.3 /CUMM (1.2-3.4); ABSOLUTE MONOCYTE COUNT 0.2 /CUMM (0.10-0.60); BASOPHIL % 0 % (0.0-2.0); EOSINOPHIL % 0 % (0-5); HEMATOCRIT 37.1 % (37-47); MEAN CORPUSCULAR HGB 29.5 PG (27.0-31.0); MEAN CORPUSCULAR HGB CONC 32.8 G/DL (33.0-37.0); MEAN CORPUSCULAR VOLUME 89.7 FL (81.0-99.0); MEAN PLATELET VOLUME 10.8 FL (7.4-10.4); PLATELET COUNT 202 /CUMM (130-400); RBC DISTRIBUTION WIDTH 15.1 % (11.5-14.5); RED BLOOD CELL CT 4.13 /CUMM (4.20-5.40); WHITE BLOOD CELL COUNT 9.7 /CUMM (4.8-10.8)
[2018-01-28 09:14] LABS: GRANULOCYTE % 94.6 % (42.2-75.2)
[2018-01-28 15:29] VITALS: BP 126/76
--- NOTE | 2018-01-28 18:54 | Cons- Pulmonary ---
General Information and HPI Consulting Request Date of Consult: 01/28/18 Requested By: med team History of Present Illness: This is a 77 yo F with a PMH of Asthma, COPD, recurrent PE on Coumadin, Anxiety , recently admission in sep 2017 for acute hypoxic resp failure 2/2 to COPD presents to [place] ED with c/o of shortness of breath. He reports gradual onset of shortness of breath over this past week with worsening progression depsite the use of nebulizers prednisone and antibiotics. Shortness of breath worsening on exertion. Associated symptoms include productive cough, wheezing but no fever /chills. Denies recent sick contacts or travel. Remainder of ROS is negative for chest pain/palpitation, abdominal pain, or dysuria. Allergies/Medications Allergies: Coded Allergies: NO KNOWN ALLERGIES (NONE 10/02/17) Home Med List: Albuterol Sulfate (Proair Hfa) 90 MCG HFA.AER.AD 2 PUF INH Q4-6 PRN PRN SHORTNESS OF BREATH . Amantadine HCl (Amantadine) 100 MG TABLET 1 TAB PO BID PARKINSONS (Reported) Azithromycin (Zithromax) 250 MG TABLET 1 DP PO AD ABX (Reported) 2 the first day followed by 1 for days 2-5 Budesonide 0.25 MG/2 ML AMPUL.NEB 1 Vial INH/EVGENY TID COPD (Reported) Carbidopa/Levodopa (Carbidopa-Levo 25-100 MG Odt) 25 MG-100 MG TAB.RAPDIS 1.5 TAB PO TID PARKINSONS (Reported) Fluoxetine HCl 20 MG CAPSULE 1 CAP PO DAILY DEPRESSION (Reported) Ipratropium/Albuterol Sulfate (Iprat-Albut 0.5-3(2.5) MG/3 Ml) 3 ML AMPUL.NEB 1 INH NEB Q6-PRN PRN SHORTNESS OF BREATH (Reported) Prednisone 5 MG TABLET 1 TAB PO AD STEROID (Reported) Rotigotine (Neupro) 6 MG/24 HOUR PATCH.TD24 1 PAT TOP DAILY PARKINSONS ( Reported) Warfarin Sodium (Coumadin) 2.5 MG TABLET 0.5-1 TAB PO AD BLOOD THINNER ( Reported) Review of Systems Review of Systems Constitutional: Reports: see HPI. Past History Travel History Traveled to [place] past 21 day No Medical History Blood Transfusion Hx: No Neurological: Parkinson's disease EENT: NONE Cardiovascular: NONE Respiratory: asthma, COPD, pulmonary embolism Gastrointestinal: GERD Hepatic: NONE Renal: NONE Musculoskeletal: NONE Psychiatric: anxiety Endocrine: NONE Blood Disorders: NONE Cancer(s): NONE PLEAT PATTERNMAKER/Reproductive: NONE Surgical History Surgical History: L KNEE REPLACEMENT BACK SURGERY Family History Relations & Conditions If Any: Relation not specified for: *No pertinent family history Psychosocial History Where Do You Live? Home Who Do You Live With? spouse Services at Home: None Smoking Status: Never Smoked ETOH Use: denies use Illicit Drug Use: denies illicit drug use Exam & Diagnostic Data Last 24 Hrs of Vital Signs/I&O Vital Signs Date Time Temp Pulse Resp B/P B/P Pulse O2 O2 Flow FiO2 Mean Ox Delivery Rate 01/28 1657 91 Nasal 2.0L Cannula 01/28 1529 97.6 87 18 126/76 95 01/28 0834 93 Nasal 2.0L Cannula 01/28 0800 94 Nasal 2.0L Cannula 01/28 0631 97.8 80 20 138/80 94 01/28 0000 Nasal 2.0L Cannula 01/27 2249 98.2 71 22 147/68 97 Nasal 1.0L Cannula Intake & Output 01/28 1600 01/28 0800 03 0000 Intake Total 1170 840 240 Output Total 300 400 250 Balance 870 440 -10 Intake, IV 450 600 Intake, Oral 720 240 240 Output, Urine 300 400 250 Last 48 Hrs of Labs/Jude: Laboratory Tests 01/28/18 0643: Anion Gap 9, Estimated GFR > 60, BUN/Creatinine Ratio 48.3 H, Orx-X-Paksbjvrcck Pept 630 H, PT 37.0 H, INR 3.35 H, CBC w Diff NO MAN DIFF REQ, RBC 4.13 L, MCV 89.7, MCH 29.5, MCHC 32.8 L, RDW 15.1 H, MPV 10.8 H, Gran % 94.6 H, Lymphocytes % 3.5 L, Monocytes % 1.9, Eosinophils % 0, Basophils % 0, Absolute Granulocytes 9.2 H, Absolute Lymphocytes 0.3 L, Absolute Monocytes 0.2, Absolute Eosinophils 0, Absolute Basophils 0 01/27/18 0742: Anion Gap 11, Estimated GFR > 60, BUN/Creatinine Ratio 45.0 H, PT 24.9 H, INR 2.27 H, CBC w Diff NO MAN DIFF REQ, RBC 4.30, MCV 88.9, MCH 29.4, MCHC 33.1, RDW 15.2 H, MPV 10.1, Gran % 91.6 H, Lymphocytes % 5.3 L, Monocytes % 3.1, Eosinophils % 0, Basophils % 0, Absolute Granulocytes 6.7 H, Absolute Lymphocytes 0.4 L, Absolute Monocytes 0.2, Absolute Eosinophils 0, Absolute Basophils 0 Microbiology 01/27 1456 URINE ROUT: Legionella Antigen - COMP 01/27 145 URINE ROUT: Streptococcus pneumoniae Antigen (M - COMP Assessment/Plan Impression/Plan: General Appearance Alert, Oriented X3, Cooperative Skin No Significant Lesion Skin Temp/Moisture Exam: Warm/Dry Sepsis Skin Exam (color): Normal for Ethnicity HEENT Atraumatic, PERRLA, SLIGHTLY DRY MUCOSA Neck Supple, jvd Lymphatic Cervical nl Cardiovascular Regular Rate, Normal S1, Normal S2 Lungs prominent exp wheezes b/l in all lung angeles Abdomen Normal Bowel Sounds, Soft, No Tenderness Neurological Normal Speech, Strength at 5/5 X4 Ext, Normal Tone, Sensation Intact, Cranial Nerves 3-12 NL Extremities No Edema, Normal Pulses, No Tenderness/Swelling IMPRESSION This is an unfortunate lady with very end-stage Parkinson's disease, significant asthma, mild COPD, mostly reversible airway disease now has * Acute asthma exacerbation, with bronchitis unlikely pna, this is made worse by sig parkinsons with tremors and occ dysphagia * Pt has had pseudomonas before, no clinical evidence of infection * Previous chronic steroid use has been off prednisone lately, also on budesonide nebs bid for eosinophilic asthma * Significant Parkinson's with on and off aspiration prob * Small hiatal hernia * Chronic pulmonary embolism on warfarin, INR does fluctuate * Depression with anxiety * No clinical evidence suggestive of recurrent venous thromboembolism REC Taper steroids down to 5 mg in 2 weeks COnt warfarin for a traget inr of 2.5 Cont nebs COnt parkinson meds Pt advised to eat and drink after she takes parkinsons meds Increase activity COnt nebs Consult Acknowledgment - Thank you for your consult request.
[2018-01-28 22:38] VITALS: BP 120/64
[2018-01-29 06:47] VITALS: BP 160/86
--- NOTE | 2018-01-29 07:02 | PN- Housestaff ---
Stuart OLGUIN,[facility] 01/29/18 0701: Subjective Follow-up For: Asthma Exacerbation Subjective: Patient was seen and examined at bedside. She is very eager to go home. She does not offer any complaints at this time. Review of Systems Constitutional: Reports: no symptoms. Objective Last 24 Hrs of Vital Signs/I&O Vital Signs Date Time Temp Pulse Resp B/P B/P Pulse O2 O2 Flow FiO2 Mean Ox Delivery Rate 01/29 0818 95 Nasal 2.0L Cannula 01/29 0647 97.5 71 20 160/86 97 Nasal 1.5L Cannula 01/29 0000 94 Nasal 2.0L Cannula 01/28 2238 99.1 97 20 120/64 94 Nasal 1.0L Cannula 01/28 1657 91 Nasal 2.0L Cannula 01/28 1600 Nasal 2.0L Cannula 01/28 1529 97.6 87 18 126/76 95 Intake & Output 01/29 1600 01/29 0800 01/29 0000 Intake Total 600 Output Total 1050 600 Balance -450 -600 Intake, IV 600 Intake, Oral 0 Number 0 Bowel Movements Output, Urine 1050 600 Physical Exam General Appearance: Alert, Oriented X3, Cooperative, Mild Distress Skin: No Rashes, No Breakdown Skin Temp/Moisture Exam: Warm/Dry Sepsis Skin Exam (color): Normal for Ethnicity HEENT: Atraumatic Cardiovascular: Normal S1, Normal S2, No Murmurs Lungs: diffuse wheezing and rhonchi Abdomen: Soft, No Tenderness Neurological: Normal Speech Extremities: No Edema Assessment/Plan Assessment: 77 yo F with a PMH of Asthma, COPD, recurrent PE on Coumadin, Anxiety, presnts with symptoms of progressively worsening shortness of breath, cough and sputum production. Respiratory symptoms did not improve with outpatient prednisone and Azithromycin. Assessment: 1. Asthma exacerbation 2. Pre-renal azotemia. 3. History of Asthma, COPD, recurrent PE on Coumadin, Anxiety 4. History of Parkinson's Disease Plan * Continue O2 supplementation to keep sats > 92%. Currently on 2L. Will wean off as tolerated. Patient does not use oxygen at home. * TRC/nebs as needed * Start Prednisone 40mg. Per pulm, to be tapered down to 5mg in 2 weeks. * Low threshold for PO antibiotics. * Repeat CXR to evaluate for pneumonia and interestitial edema * One dose Lasix if patient is congested. * urine strept and legionella - negative. * Continue Mucinex 600mg bid * Warfarin dosing per INR with goal of 2-3. Will hold Warfarin today as her INR continues to be supratherapeutic. * Continue home meds * DVT: On coumadin * Diet: Regular * Code status: Full code Problem List: 1. COPD exacerbation Pain Ratin Pain Location: none Pain Goal: Remain pain free Pain Plan: none Tomorrow's Labs & Rationales: CBC Destiny Chase 01/29/18 1157: Attending MD Review Statement Attending Statement Attending MD Statement: examined this patient, discuss w/resident/PA/MANAGER PACU, agreed w/resident/PA/MANAGER PACU, discussed with family, reviewed EMR data (avail), discussed with nursing, discussed with case mgmt, reviewed images, amended to note Attending Assessment/Plan: The patient was seen and discussed with house staff. Improvement in wheezing, Continue PO steroids, conitnue with bronchodilators. Obtain repeat chest xray f/ u. Will continue current plan of care. Patient is on 2l oxygen supplementation. Cont supportive care for parkinson disease. Dr. Regalado her primary pulmonary MD f/u.
[2018-01-29 08:00] LABS: ABSOLUTE BASOPHIL COUNT 0 /CUMM (0.0-0.2); ABSOLUTE EOSINOPHIL COUNT 0 /CUMM (0.0-0.7); ABSOLUTE GRANULOCYTE CT 7.8 /CUMM (1.4-6.5); ABSOLUTE LYMPH COUNT 0.9 /CUMM (1.2-3.4); ABSOLUTE MONOCYTE COUNT 0.7 /CUMM (0.10-0.60); BASOPHIL % 0.1 % (0.0-2.0); EOSINOPHIL % 0 % (0-5); GRANULOCYTE % 82.9 % (42.2-75.2); HEMATOCRIT 39.1 % (37-47); MEAN CORPUSCULAR HGB 29.5 PG (27.0-31.0); MEAN CORPUSCULAR VOLUME 89.2 FL (81.0-99.0); MEAN PLATELET VOLUME 9.7 FL (7.4-10.4); PLATELET COUNT 208 /CUMM (130-400); RBC DISTRIBUTION WIDTH 15.7 % (11.5-14.5); RED BLOOD CELL CT 4.38 /CUMM (4.20-5.40); WHITE BLOOD CELL COUNT 9.4 /CUMM (4.8-10.8)
[2018-01-29 08:18] LABS: PT 37.6 SEC (9.4-12.5)
--- NOTE | 2018-01-29 09:23 | PN- Pulmonary ---
Subjective HPI/Critical Care Issues: Still congested On ivf Objective Current Medications: Current Medications Sig/Mark Start time Last Medication Dose Route Stop Time Status Admin Acetaminophen 500 MG Q6P PRN 01/26 1615 AC PO Albuterol Sulfate 3 ML EVERY 4 HRS/AWAKE 01/27 2000 AC 01/29 INH 0815 Amantadine HCl 100 MG BID 01/26 2200 AC 01/28 PO 2115 Azithromycin 250 MG DAILY 01/27 1000 DC 01/28 PO 1149 Carbidopa/Levodopa 1.5 TAB 0800,1399,01/27 1400 AC 01/29 PO 0801 Fluoxetine HCl 20 MG DAILY 01/27 1000 AC 01/28 PO 0855 Guaifenesin 600 MG Q12 01/26 220 AC 01/28 PO 2115 Ipratropium F[place]am 2.5 ML EVERY 4 HRS/AWAKE 01/27 2000 AC 01/29 INH 0815 Methylprednisolone 40 MG Q8 01/26 2200 DC 01/28 IV 1452 Patient Medication 1 ED ONE ONE 01/28 1600 [facility] Teaching ED 01/28 1601 Prednisone 40 MG DAILY 01/29 1000 AC PO Sodium Chloride 1,000 ML Q13H 01/26 2100 AC 01/29 IV 0515 Vital Signs & I&O Last 24 Hrs of Vitals and I&O: Vital Signs Date Time Temp Pulse Resp B/P B/P Pulse O2 O2 Flow FiO2 Mean Ox Delivery Rate 01/29 08 95 Nasal 2.0L Cannula 01/29 0647 97.5 71 20 160/86 97 Nasal 1.5L Cannula 01/28 2238 99.1 97 20 120/64 94 Nasal 1.0L Cannula 01/28 1657 91 Nasal 2.0L Cannula 01/28 1600 Nasal 2.0L Cannula 01/28 1529 97.6 87 18 126/76 95 Intake & Output 01/29 1600 01/29 0800 01/29 0000 Intake Total Output Total 1050 600 Balance -1050 -600 Output, Urine 1050 600 Impression/Plan Impression/Plan Impression/Plan: HEENT Atraumatic, PERRLA, SLIGHTLY DRY MUCOSA Neck Supple, jvd Lymphatic Cervical nl Cardiovascular Regular Rate, Normal S1, Normal S2 Lungs prominent exp wheezes b/l in all lung angeles Abdomen Normal Bowel Sounds, Soft, No Tenderness Neurological Normal Speech, Strength at 5/5 X4 Ext, Normal Tone, Sensation Intact, Cranial Nerves 3-12 NL Extremities No Edema, Normal Pulses, No Tenderness/Swelling IMPRESSION This is an unfortunate lady with very end-stage Parkinson's disease, significant asthma, mild COPD, mostly reversible airway disease now has * Acute asthma exacerbation, with bronchitis unlikely pna, this is made worse by sig parkinsons with tremors and occ dysphagia * Pt has had pseudomonas before, no clinical evidence of infection * Previous chronic steroid use has been off prednisone lately, also on budesonide nebs bid for eosinophilic asthma * Significant Parkinson's with on and off aspiration prob * Small hiatal hernia * Chronic pulmonary embolism on warfarin, INR does fluctuate * Depression with anxiety * No clinical evidence suggestive of recurrent venous thromboembolism REC Taper steroids down to 5 mg in 2 weeks DC fluids and may need lasix COnt warfarin for a traget inr of 2.5 Cxr to be repeated Cont nebs Low thershold for po abx like ceftin COnt parkinson meds Pt advised to eat and drink after she takes parkinsons meds Increase activity COnt nebs
--- NOTE | 2018-01-29 10:37 | RADIOLOGY REPORT ---
EXAMINATION: XR PORTABLE CHEST CLINICAL INFORMATION: Dyspnea. Wheeze. COMPARISON: 01/26/2018 TECHNIQUE: Portable frontal view of the chest was obtained. FINDINGS: The lungs are well expanded. There is no consolidation, edema, or effusion. No pneumothorax. The cardiomediastinal silhouette is unchanged. No acute osseous abnormality. Focal sclerosis in the proximal left humerus with a nonaggressive appearance. IMPRESSION: No acute pulmonary findings.
--- NOTE | 2018-01-29 11:34 | Discharge Summary ---
Visit Information Visit Dates Admission Date: 01/26/18 Discharge Date: 01/30/18 Hospital Course Course Attending Physician: Destiny Chase MD Primary Care Physician: Mihir Randolph MD Hospital Course: Ms Kang is a 77 yo F with a PMH of Asthma, COPD, recurrent PE on Coumadin, Depression with Anxiety, who presented with symptoms of progressively worsening shortness of breath, cough and sputum production. Respiratory symptoms did not improve with outpatient prednisone and Azithromycin. Below is a list of conditions she was admitted and treated for: Asthma Exacerbation with Bronchitis: On admission, patient was found to be dyspneic with prominent exp wheezes b/l in all lung [place]. She was started on supplemental O2 to keep her oxygen sats >92% along with TRC/nebs as needed and IV Solu-Medrol. Her CXR did not show any acute abnormalities. Her urine was negative for S.pneuo and Legionella antigen. She was evaluated by her patient services technician in the hospital. Patient responded well to treatment. Her IV steroids were switched to PO as her condition improved. Her oxygen was slowly weaned off as tolerated. Her resting and ambulatory sats >92% on room air at the time of discharge. She was discharged in stable disposition on an oral Prednisone taper to be maintained at 5mg until she follows up with her patient services technician. History of Parkinson Disease: Continued on Amantadine, Sinemet and Rotigotine History of Chronic PE on Warfarin: Her INR was monitored daily and warfarin administered as permitted to keep a target INR of 2.5 History of Anxiety with Depression: Continued on Fluxetine DVT Prophylaxis: On Warfarin Allergies: Coded Allergies: NO KNOWN ALLERGIES (NONE 10/02/17) Significant Procedures: SERVICE DATE: 01/29/18- EXAM TYPE: RAD - XRY-PORTABLE CHEST XRAY FINDINGS: The lungs are well expanded. There is no consolidation, edema, or effusion. No pneumothorax. The cardiomediastinal silhouette is unchanged. No acute osseous abnormality. Focal sclerosis in the proximal left humerus with a nonaggressive appearance. IMPRESSION: No acute pulmonary findings. SERVICE DATE: 01/26/18-848 EXAM TYPE: RAD - XRY-PORTABLE CHEST XRAY FINDINGS: There is hyperinflation present. No acute parenchymal disease, pneumothorax, or pleural effusion seen. Heart normal size. No evidence of pulmonary edema. Retrocardiac density seen which may represent small hiatal hernia or tortuous thoracic aorta. There is scoliosis of the thoracic spine convex right. IMPRESSION: No acute disease. Disposition Summary Disposition Principal Diagnosis: Asthma Exacerbation with bronchitis Additional Diagnosis: Parkinson's Disease Chronic Pulmonary Embolism Depression with Anxiety Discharge Disposition: home or self care Discharge Instructions General Discharge Information Code Status: Full Code Patient's Diet: Regular Patient's Activity: As tolerated Follow-Up Instructions/Appts: Please follow up with your PCP and patient services technician within one week of discharge. Medications at Discharge Discharge Medications: Stop taking the following medications: Prednisone (Prednisone) 5 MG TABLET ORAL DAILY Qty = 30 Continue taking these medications: Amantadine HCl (Amantadine) 100 MG TABLET 1 Tablet ORAL TWICE DAILY Comments: Last Taken: 01/30/18 Time: 9:11 AM Carbidopa/Levodopa (Carbidopa-Levo 25-100 MG Odt) 25 MG-100 MG TAB.RAPDIS 1.5 Tablet ORAL THREE TIMES DAILY Comments: Last Taken: 10/05/17 Time: 1015 AM Fluoxetine HCl (Fluoxetine HCl) 20 MG CAPSULE 1 Capsule ORAL DAILY Comments: Last Taken: 01/30/18 Time: 9:07 AM Rotigotine (Neupro) 6 MG/24 HOUR PATCH.TD24 1 Patch On the skin DAILY Comments: Last Taken: 01/30/18 TIME: 9:17 AM Ipratropium/Albuterol Sulfate (Iprat-Albut 0.5-3(2.5) MG/3 Ml) 3 ML AMPUL.NEB 1 Inhalation Inhale Solution via Nebulizer EVERY 6 HOURS NEEDED as needed for SHORTNESS OF BREATH Qty = 360 Comments: RESPIRATORY ADMINISTERED Budesonide (Budesonide) 0.25 MG/2 ML AMPUL.NEB 1 Vial Inhale Solution THREE TIMES DAILY Qty = 120 Comments: NOT GIVEN IN HOSPITAL Albuterol Sulfate (Proair Hfa) 90 MCG HFA.AER.AD 2 Puff Inhale through mouth EVERY 4-6 HOURS NEEDED as needed for SHORTNESS OF BREATH Qty = 1 Instructions: . Comments: Last Taken:01/30/18 Time:8:17 AM Warfarin Sodium (Coumadin) 2.5 MG TABLET 0.5-1 Tablet ORAL As Directed Azithromycin (Zithromax) 250 MG TABLET 1 Dose Pack ORAL As Directed Instructions: 2 the first day followed by 1 for days 2-5 Comments: NOT GIVEN Start taking the following new medications: Prednisone (Prednisone) 10 MG TABLET 1 Tablet ORAL DAILY Qty = 30 No Refills Instructions: Please take 4 tablets of Prednisone 10mg on 01/31/18 then take 3 tablets of Prednisone 10mg on 02/01/10 to 02/03/18 then take 2 tablets of Prednisone 10mg on 02/04/18 and 02/06/18 then take 1 tablet of Prednisone 10mg 02/07/18 and 02/09/18 then take 0.5 tablet of Prednisone 10mg until you see your patient services technician Comments: Please take 4 tablets of Prednisone 10mg on 01/31/18 then take 3 tablets of Prednisone 10mg on 02/01/18 to 02/03/18 then take 2 tablets of Prednisone 10mg on 02/04/18 to 02/06/18 then take 1 tablet of Prednisone 10mg 02/07/18 and 02/09/18 then take 0.5 tablet of Prednisone 10mg until you see your patient services technician Copies To: Tomasa OLGUIN,Mihir Tyler Attending MD Review Statement Documenting Attending: Rena OLGUIN,Destiny Other Findings: The patient was seen and discussed with house staff. Improvement in wheezing, Continue PO steroids, conitnue with bronchodilators. Repeat chest xray f/u with no acute disease. Will continue current plan of care. Titrate oxygen and she is on room air. Cont supportive care for parkinson disease. Dr. Regalado her primary pulmonary MD f/u. anticipate dc soon. Plan of care dwed patient/family bedside.
[2018-01-29 14:04] VITALS: BP 106/62
--- NOTE | 2018-01-29 16:02 | Patient Discharge Instructions ---
Discharge Instructions General Discharge Information You were seen/treated for: Asthma Exacerbation Special Instructions: Please follow with your PCP and ecdis n navigation operator within one week of discharge. Diet Continue normal diet: Yes Activity Full Activity/No Limits: Yes Acute Coronary Syndrome Inclusion Criteria At DC or during hospital stay patient has or had the following: ACS DIAGNOSIS No Discharge Core Measures Meds if any: Prescribed or Continued at Discharge Meds if any: NOT Prescribed or Continued at Discharge Congestive Heart Failure Inclusion Criteria At DC or during hospital stay patient has or had the following: CHF DIAGNOSIS No Discharge Core Measures Meds if any: Prescribed or Continued at Discharge Meds if any: NOT Prescribed or Continued at Discharge Cerebrovascular accident Inclusion Criteria At DC or during hospital stay patient has or had the following: CVA/TIA Diagnosis No Discharge Core Measures Meds if any: Prescribed or Continued at Discharge Meds if any: NOT Prescribed or Continued at Discharge Venous thromboembolism Inclusion Criteria VTE Diagnosis No VTE Type NONE VTE Confirmed by (Test) NONE Discharge Core Measures - Per Current guidelines, there needs to be overlap - treatment for the first 5 days of Warfarin therapy. - If discharged on Warfarin prior to 5 days of - overlap therapy, the patient will need to be - assessed for post discharge needs including - *Post discharge parental anticoagulation - *Warfarin and/or parental anticoagulation education - *Follow up date to check INR post discharge At least 5 days overlap therapy as Inpatient No Meds if any: Prescribed or Continued at Discharge Note: Overlap Therapy is Warfarin and Anticoagulant Meds if any: NOT Prescribed or Continued at Discharge
[2018-01-29 22:31] VITALS: BP 139/81
[2018-01-30 06:00] VITALS: BP 134/76
--- NOTE | 2018-01-30 07:14 | PN- Housestaff ---
Stuart OLGUIN,[facility] 01/30/18 0714: Subjective Follow-up For: Asthma Exacerbation Subjective: Patient was seen and examined at bedside. She states she still has a lot of wheezing. Doesn't feel short of breath. Would like to be discharged soon. Review of Systems Constitutional: Reports: no symptoms. Respiratory: Reports: wheezing. Objective Last 24 Hrs of Vital Signs/I&O Vital Signs Date Time Temp Pulse Resp B/P B/P Pulse O2 O2 Flow FiO2 Mean Ox Delivery Rate 01/30 600 98.9 87 22 134/76 93 Nasal 2.0L Cannula 01/30 0310 95 Nasal 2.0L Cannula 01/30 0000 93 Nasal 2.0L Cannula 01/29 2231 98.2 96 20 139/81 93 Nasal 2.0L Cannula 01/29 1619 93 Nasal 2.0L Cannula 01/29 1404 97.8 92 18 106/62 91 Intake & Output 01/30 1600 01/30 0800 01/30 0000 Intake Total 200 Output Total 800 400 Balance -800 -200 Intake, Oral 200 Number 0 Bowel Movements Output, Urine 800 400 Physical Exam General Appearance: Alert, Oriented X3, Cooperative, Mild Distress Skin: No Rashes, No Breakdown Skin Temp/Moisture Exam: Warm/Dry Sepsis Skin Exam (color): Normal for Ethnicity HEENT: Atraumatic Cardiovascular: Normal S1, Normal S2, No Murmurs Lungs: diffuse wheezing bilaterally Abdomen: Soft, No Tenderness Neurological: Normal Speech Extremities: No Edema Assessment/Plan Assessment: 77 yo F with a PMH of Asthma, COPD, recurrent PE on Coumadin, Anxiety, presnts with symptoms of progressively worsening shortness of breath, cough and sputum production. Respiratory symptoms did not improve with outpatient prednisone and Azithromycin. Assessment: 1. Asthma exacerbation 2. Pre-renal azotemia. 3. History of Asthma, COPD, recurrent PE on Coumadin, Anxiety 4. History of Parkinson's Disease Plan * Continue O2 supplementation to keep sats > 92%. Currently on 2L. Will wean off as tolerated. Patient does not use oxygen at home. * TRC/nebs as needed * Continue Prednisone 40mg. Per pulm, to be tapered down to 5mg in 2 weeks. * Repeat CXR did not show any acute abnormality. * Her proBNP is elevated but the patient has been negative fluid balance. Will not administer Lasix at this time. * urine strept and legionella - negative. * Continue Mucinex 600mg bid * Warfarin dosing per INR with goal of 2-3. She can receive Warfarin today. * Continue home meds * DVT: On coumadin * Diet: Regular * Code status: Full code * Stable to go home today. Problem List: 1. History of Parkinson's disease Pain Ratin Pain Location: none Pain Goal: Remain pain free Pain Plan: none Tomorrow's Labs & Rationales: none Destiny Chase 01/30/18 1036: Attending MD Review Statement Attending Statement Attending MD Statement: examined this patient, discuss w/resident/PA/SENIOR MECHANICAL DESIGN ENGINEER, agreed w/resident/PA/SENIOR MECHANICAL DESIGN ENGINEER, discussed with family, reviewed EMR data (avail), discussed with nursing, discussed with case mgmt, reviewed images, amended to note Attending Assessment/Plan: The patient was seen and discussed with house staff. Improvement in wheezing, Continue PO steroids, conitnue with bronchodilators. Repeat chest xray f/u with no acute disease. Will continue current plan of care. Titrate oxygen and she is on room air. Cont supportive care for parkinson disease. Dr. Regalado her primary pulmonary MD f/u. anticipate dc soon. Plan of care dwed patient/family bedside.
[2018-01-30 08:06] LABS: ABSOLUTE BASOPHIL COUNT 0 /CUMM (0.0-0.2); ABSOLUTE EOSINOPHIL COUNT 0 /CUMM (0.0-0.7); ABSOLUTE GRANULOCYTE CT 8.3 /CUMM (1.4-6.5); ABSOLUTE LYMPH COUNT 1.2 /CUMM (1.2-3.4); ABSOLUTE MONOCYTE COUNT 0.9 /CUMM (0.10-0.60); BASOPHIL % 0.2 % (0.0-2.0); EOSINOPHIL % 0.3 % (0-5); GRANULOCYTE % 79.6 % (42.2-75.2); MEAN CORPUSCULAR HGB 29.3 PG (27.0-31.0); MEAN CORPUSCULAR HGB CONC 32.5 G/DL (33.0-37.0); MEAN CORPUSCULAR VOLUME 90.3 FL (81.0-99.0); MEAN PLATELET VOLUME 9.7 FL (7.4-10.4); PLATELET COUNT 229 /CUMM (130-400); RBC DISTRIBUTION WIDTH 15.3 % (11.5-14.5); RED BLOOD CELL CT 4.87 /CUMM (4.20-5.40); WHITE BLOOD CELL COUNT 10.4 /CUMM (4.8-10.8)
[2018-01-30 08:17] LABS: PT 26.5 SEC (9.4-12.5)
[2018-01-30] MEDS ORDERED: PREDNISONE10 M2 PO ×3 (10:11→10:27)
--- NOTE | 2018-01-30 14:51 | PN- Pulmonary ---
Subjective HPI/Critical Care Issues: Being dcd stable Objective Current Medications: Current Medications Sig/Mark Start time Last Medication Dose Route Stop Time Status Admin Acetaminophen 500 MG Q6P PRN 01/26 1615 DCD PO Albuterol Sulfate 3 ML EVERY 4 HRS/AWAKE 01/27 2000 DCD 01/30 INH 0817 Amantadine HCl 100 MG BID 01/26 220 DCD 01/30 PO 0911 Benzonatate 100 MG Q6P PRN 01/29 1030 DCD PO Carbidopa/Levodopa 1.5 TAB 0800,1399,01/27 1400 DCD 01/30 PO 0800 Fluoxetine HCl 20 MG DAILY 01/27 1000 DCD 01/30 PO 0907 Guaifenesin 10 ML Q4P PRN 01/29 1030 DCD PO Guaifenesin 600 MG Q12 01/26 220 DCD 01/30 PO 0905 Ipratropium [place] 2.5 ML EVERY 4 HRS/AWAKE 01/27 2000 DCD 01/30 INH 0817 Patient Medication 1 ED ONE ONE 01/30 1030 SC Teaching ED 01/30 1031 Prednisone 40 MG DAILY 01/29 1000 DCD 01/30 PO 0905 Vital Signs & I&O Last 24 Hrs of Vitals and I&O: Vital Signs Date Time Temp Pulse Resp B/P B/P Pulse O2 O2 Flow FiO2 Mean Ox Delivery Rate 01/30 08 94 Nasal 2.0L Cannula 01/30 06 98.9 87 22 134/76 93 Nasal 2.0L Cannula 01/30 0310 95 Nasal 2.0L Cannula 01/30 0000 93 Nasal 2.0L Cannula 01/29 2231 98.2 96 20 139/81 93 Nasal 2.0L Cannula 01/29 1619 93 Nasal 2.0L Cannula Intake & Output 01/30 1600 01/30 0800 01/30 0000 Intake Total 200 Output Total 800 400 Balance -800 -200 Intake, Oral 200 Number 0 Bowel Movements Output, Urine 800 400 Impression/Plan Impression/Plan Impression/Plan: HEENT Atraumatic, PERRLA, SLIGHTLY DRY MUCOSA Neck Supple, jvd Lymphatic Cervical nl Cardiovascular Regular Rate, Normal S1, Normal S2 Lungs prominent exp wheezes b/l in all lung [place] Abdomen Normal Bowel Sounds, Soft, No Tenderness Neurological Normal Speech, Strength at 5/5 X4 Ext, Normal Tone, Sensation Intact, Cranial Nerves 3-12 NL Extremities No Edema, Normal Pulses, No Tenderness/Swelling IMPRESSION This is an unfortunate lady with very end-stage Parkinson's disease, significant asthma, mild COPD, mostly reversible airway disease now has * Resolved Acute asthma exacerbation, with bronchitis unlikely pna, this is made worse by sig parkinsons with tremors and occ dysphagia * Pt has had pseudomonas before, no clinical evidence of infection * Previous chronic steroid use has been off prednisone lately, also on budesonide nebs bid for eosinophilic asthma * Significant Parkinson's with on and off aspiration prob * Small hiatal hernia * Chronic pulmonary embolism on warfarin, INR does fluctuate * Depression with anxiety * No clinical evidence suggestive of recurrent venous thromboembolism REC Taper steroids down to 5 mg in 2 weeks COnt warfarin for a traget inr of 2.5 Cont nebs COnt parkinson meds Pt advised to eat and drink after she takes parkinsons meds Increase activity COnt nebs Out pt follow up
== END 2018-01-30 12:00 | disposition home health service (06) | DRG 202 ==
LOC: ERH 08:19 → ERHI 13:45 → 2NB 13:45 → CANRESERV 14:56 → ENRESERV 14:56 → ENTRNSPT 17:09 → EDTRNSPTSTS 17:18 → EDTRNSPT 17:18 → 2NB 17:30 → CMPTRNSPT 17:49 → 2NB 01-28 07:35 → ENPENDDIS 01-30 09:51 → ENTRNSPT 01-30 11:35 → CMPTRNSPT 01-30 11:54 → 2NB 01-30 12:00
PROVIDERS: Emergency Medicine; Internal Medicine; Student in an Organized Health Care Education/Training Program
DX: J45.901 Unspecified asthma with (acute) exacerbation (principal); J44.0 Chronic obstructive pulmonary disease with (acute) lower respiratory infection; G20 Parkinson's disease; Z79.01 Long term (current) use of anticoagulants; Z86.711 Personal history of pulmonary embolism; J20.9 Acute bronchitis, unspecified; F41.9 Anxiety disorder, unspecified; F32.9 Major depressive disorder, single episode, unspecified; K44.9 Diaphragmatic hernia without obstruction or gangrene; R79.89 Other specified abnormal findings of blood chemistry
CPT/HCPCS: 2NBSP; 36415; 36592; 71045; 82436; 87070; 87449; 87450; 87804; 87804-59; 93005; 93010; 96374; 97116-GO; 97161-GP; J0456; J2920; J2930